=== PATIENT | male | born 1980 | race Caucasian/White ===

== ENCOUNTER 2022-07-08 15:29 | Emergency (ER) | payer OTHER, SELFPAY ==
[2022-07-08 15:29] VITALS: BP 144/88; PULSE 108; RESP 20; TEMP 36.7; O2SAT 95; BMI 36.7
--- NOTE | 2022-07-08 15:30 | W.ED.UPPEXIN ---
HPI - Extremity Injury (Upper) General: Chief Complaint: Extremity Injury, Upper Stated Complaint: right arm injury Time Seen by Provider: 07/08/22 15:30 History of Present Illness: Mr. Castro is a 41-year-old gentleman presenting to the emergency department due to concern over right arm injury. He reports tripping and falling over a root and fell landing primarily on his right upper extremity on the stump. He immediately had marked pain and noted that his arm was pointed in a direction that his shoulder was not. Current pain intensity moderate to severe. Mild distal throbbing tingling however no other CMS abnormalities. No open wounds. Patient is up-to-date on tetanus. No other specific changes in health, exacerbating, or alleviating factors identified. MD complaint: injury to: right and shoulder Onset (ago): minute(s) Handedness: right Place: home Severity: moderate Exacerbating factors: movement of extremity Context: fall Associated symptoms: Reports crepitus Review of Systems General: Reports: 10 or more systems reviewed and unremarkable except in HPI and below PFSH ED PFSH: Medical History PTSD (post-traumatic stress disorder) Surgical History No significant past surgical history Physical Exam Const: COMMON NORMALS: alert GENERAL APPEARANCE: cooperative and well developed HENMT: COMMON NORMALS: normocephalic and atraumatic HEAD & SCALP: normocephalic and atraumatic THROAT: posterior oropharynx normal OTHER: No christensen signs or raccoon eyes. No hemotympanum. No otorrhea or rhinorrhea. Jaw alignment normal. Dentition baseline. No obvious bony step-offs. No septal hematoma. No evidence of ocular entrapment. Eye: COMMON NORMALS: conjunctivae normal CONJUNCTIVA: Yes conjunctivae normal SCLERA: sclerae normal Neck/C-Spine: COMMON NORMALS: full ROM and supple GENERAL: Yes trachea midline Resp: COMMON NORMALS: clear to auscultation bilaterally EFFORT & INSPECTION: Yes able to speak in complete sentences AUSCULTATION: clear to auscultation bilaterally Cardio: COMMON NORMALS: regular rate and regular rhythm RATE: regular rate RHYTHM: regular rhythm GI: COMMON NORMALS: Soft to palpation PALPATION: Yes Soft to palpation and No Tenderness to palpation present (GI) Back/Pelvis: COMMON NORMALS: no thoracic nor lumbar tenderness Extremity: NARRATIVE EXTREMITY EXAM: Right humeral region mid to upper tenderness to palpation. Normal range of motion without tenderness of the elbow and distal structures. CMS intact. GENERAL: Yes normal exam except as noted and No edema Neuro: COMMON NORMALS: moves all extremities SENSORIUM/ORIENTATION: Yes alert and No Orientation impaired Psych: COMMON NORMALS: mental status grossly normal and Normal thought process present THOUGHT PROCESS: Normal thought process present Course Vital Signs: Vital signs: Vital Signs Temperature 98.0 F 07/08/22 15:29 Pulse Rate 84 07/08/22 18:37 Respiratory Rate 16 07/08/22 18:37 Blood Pressure 129/92 07/08/22 18:37 Pulse Oximetry 96 07/08/22 18:37 Oxygen Delivery Me thod 07/08/22 15:29 MDM - Extremity Injury (Upper) Medical Decision Making 41-year-old gentleman presenting to the emergency department for fall with concern over arm fracture. Head to toe exam performed as above. Imaging notable for mid diaphysis right humerus fracture with lateral and posterior mild displacement and soft tissue swelling. Analgesia given and patient placed in coaptation splint. Discussed with orthopedics. No indication for closed reduction. On reassessment patient improved with adequate pain control. CMS continues to be intact. Plan for outpatient orthopedic follow-up. The results of ED evaluation were discussed with the patient including prescriptions and/or symptomatic cares (if applicable) including appropriate and responsible use, followup plan, and return precautions. The patient verbalized understanding and felt safe for discharge. Medical Records I reviewed the patient's medical records. Lab Data I reviewed the patient's lab results. Radiology Impressions Humerus X-Ray 07/08/22 15:54 IMPRESSION: 1. Transverse fracture of the mid diaphysis of the right humerus. Lateral displacement of 1 shaft with and posterior displacement of 1/2 shaft width of the distal fracture fragment. 2. Mild soft tissue swelling around the mid right humerus. Discharge Plan Discharge Patient Disposition: Home Clinical Impression: Fracture, humerus closed, shaft Condition: Stable Prescriptions: New ondansetron 4 mg tablet,disintegrating 4 mg PO Q8H PRN (Reason: nausea and vomiting) Qty: 15 0RF oxycodone 5 mg tablet 5 mg PO Q4H PRN (Reason: pain) Qty: 30 0RF No Action dicyclomine 10 mg capsule 10 mg PO DAILY loratadine [Allergy Relief (loratadine)] 10 mg tablet 10 mg PO DAILY (DME) Clam Shell Brace See Rx Instructions .Route .MEDSUPPLY Qty: 1 0RF Rx Instructions: As directed meloxicam 15 mg tablet 15 mg PO QAM allopurinol 100 mg tablet 200 mg PO QAM naproxen sodium [Aleve] 220 mg Tablet 440 mg PO Q12H PRN (Reason: Pain) fluoxetine 10 mg capsule 10 mg PO QAM bupropion HCl 300 mg tablet extended release 24 hr 300 mg PO QAM Discharge Orders: Discharge ED (Routine); Ordered 07/08/22 Ordered By: Nico Samuel Referrals: Lucius Perez [Primary Care Provider] - Discharge Diet: Usual diet Discharge Activity: Limit activity as instructed Patient Instructions: Fractures - Humerus, Opioid Safety Activity Restrictions/Additional Instructions: Thank you for visiting the emergency department. You were seen and evaluated for arm pain. You were found to have a mildly displaced right humeral shaft fracture. This was placed in a splint. Wear the splint and sling until follow-up for further instructions. You may use [id number]-[id number] medications such as acetaminophen and ibuprofen for pain however please do not exceed the daily recommended dosage as listed on the packaging and please keep in mind that many namebrand medications contain the same active ingredients. Please avoid these medications if previously instructed to do so by another physician due to other underlying medical condition. I will prescribe oxycodone, use this cautiously as discussed. Return to the emergency department for uncontrolled symptoms, any new sensory or motor changes, any color changes or temperature changes, or anything else that you are concerned about and feel needs emergency department evaluation. Coding Level of Care Code ED Tobacco Cloth Reclaimer for Coy Mercer
--- NOTE | 2022-07-08 15:54 | XRR_ITS ---
PROCEDURE INFORMATION: Exam: XR Right Humerus Exam date and time: 07/08/2022 4:05 PM Age: 41 years old Clinical indication: Injury or trauma; Fall; Blunt trauma (contusions or hematomas); Arm, upper; Right; Additional info: Fall mid shaft pain TECHNIQUE: Imaging protocol: Radiologic exam of the Right humerus. Views: 2 or more views. COMPARISON: No relevant prior studies available. FINDINGS: Bones/joints: Transverse fracture of the mid diaphysis of the right humerus. Lateral displacement of 1 shaft with and posterior displacement of 1/2 shaft width of the distal fracture fragment. No dislocation. Normal bone mineralization. No joint effusion. Joint spaces are maintained. Lungs: The visualized right lung is clear. Soft tissues: Mild soft tissue swelling around the mid right humerus. No radiopaque foreign body. XR/[place] [id number] IMPRESSION: 1. Transverse fracture of the mid diaphysis of the right humerus. Lateral displacement of 1 shaft with and posterior displacement of 1/2 shaft width of the distal fracture fragment. 2. Mild soft tissue swelling around the mid right humerus.
[2022-07-08 16:03] VITALS: RESP 18
[2022-07-08] MEDS: morphine 4 mg/mL SDV 1 mL IVP (16:03)
--- NOTE | 2022-07-08 16:25 | PC.PHAR ---
pt states he takes care of his own medications-pt states he hasnt had a testosterone cyp 200mg/ml in about 3 months
[2022-07-08 17:22] VITALS: RESP 16
[2022-07-08] MEDS: HYDROmorphone 1 mg/mL INJ 1 mL 0.5 MG IVP (17:22)
[2022-07-08] MEDS: ketorolac 30 mg/mL INJ 15 MG IVP (18:34)
[2022-07-08 18:37] VITALS: BP 129/92; PULSE 84; RESP 16; O2SAT 96
--- NOTE | 2022-07-09 10:18 | DCPLANNER ---
Addendum entered by Taylor Duncan 07/12/22 08:01: Patient had a follow up appointment scheduled with Dr. Alarcon at ortho - patient did attend appointment. Original Note: central supply manager had message to schedule a follow up appointment for patient with ortho. central supply manager sent patients information to the front office staff at ortho. Patients information will be printed and reviewed. Clinic will call patient with appointment information.
== END 2022-07-08 18:39 | disposition home or self-care (01) ==
PROVIDERS: Emergency Provider Emergency Medicine; PCP Family Medicine
DX: S42.321A Displaced transverse fracture of shaft of humerus, right arm, initial encounter for closed fracture (principal); W18.09XA Striking against other object with subsequent fall, initial encounter
CPT/HCPCS: 29105; 73060; 96374; 96375; 99284; J1170; J1885; J2270

== ENCOUNTER → 2022-07-09 13:14 | Outpatient (BNVA) | payer OTHER, SELFPAY | PROVIDERS: PCP Family Medicine; Referring Provider Emergency Medicine; Visit Provider Specialist | DX: S42.321A Displaced transverse fracture of shaft of humerus, right arm, initial encounter for closed fracture (principal); W01.198A Fall on same level from slipping, tripping and stumbling with subsequent striking against other object, initial encounter | CPT/HCPCS: 73060 ==

== ENCOUNTER 2022-07-09 15:31 | Outpatient (CLI) | payer OTHER, SELFPAY | END 2022-07-09 15:32 | disposition home or self-care (01) | LOC: SPT 15:32 | PROVIDERS: PCP Family Medicine; Visit Provider Specialist | DX: Z46.89 Encounter for fitting and adjustment of other specified devices (principal); S42.291D Other displaced fracture of upper end of right humerus, subsequent encounter for fracture with routine healing; X58.XXXD Exposure to other specified factors, subsequent encounter | CPT/HCPCS: 97760; 99204; L3980 ==

== ENCOUNTER 2022-07-13 08:43 | Day surgery (SDC) | payer OTHER, SELFPAY ==
[2022-07-12 13:26] VITALS: BMI 37.7
[2022-07-13] VITALS (15 sets, daily range): BP systolic 101–149; BP diastolic 70–97; PULSE 74–102; RESP 16–20; TEMP 35.9–36.8; O2SAT 93–98
--- NOTE | 2022-07-13 09:57 | ANES.PREANE2 ---
Pre-Anesthetic Assessment Height/Weight: Height 1.93 m Weight 140.614 kg O2 Del Method 07/13/22 09:25 Preop Diagnosis: Midshaft right humerus fracture Operation Date: 07/13/22 12:10 Proposed Procedures p OPEN REDUCTION INTERNAL FIXATION RIGHT HUMERUS SHAFT FRACTURE WITH INTRAMEDULLARY SAMIR 38734,S42.309A(Right) - Nahed Alarcon MD Familial anesthetic complications: none Was Beta Brendan taken within 24 hours: N/A Was Clonidine taken within 24 hours: N/A Last intake: Intake Last Liquid Date 07/12/22 Last Liquid Time 23:30 Last Solid Date 07/12/22 Last Solid Time 20:00 Social Tobacco and No alcohol Exam alert, oriented x 3, clear to auscultation bilaterally and regular rate & rhythm Airway Mallampati: Class III Dentition: full Pulmonary Sleep Apnea Metabolic Morbid Obesity Anesthetic Plan ASA status: 2 Anesthesia: General and Regional (specify below) Risk of > 500 ml blood loss (7ml/kg in children): No Medications/Allergies Home Medications Medication Instructions Recorded Confirmed Last Taken Type allopurinol 100 mg tablet 200 mg PO QAM 07/08/22 07/13/22 07/12/22 History bupropion HCl 300 mg 24 hr tablet, 300 mg PO QAM 07/08/22 07/12/22 07/12/22 History extended release fluoxetine 10 mg capsule 10 mg PO QAM 07/08/22 07/12/22 07/12/22 History meloxicam 15 mg tablet 15 mg PO QAM 07/08/22 07/12/22 07/12/22 History naproxen sodium 220 mg tablet 440 mg PO Q12H PRN Pain 07/08/22 07/12/22 07/12/22 History (Aleve) ondansetron 4 mg disintegrating 4 mg PO Q8H PRN nausea and 07/08/22 07/12/22 07/12/22 Rx tablet vomiting #15 tabs oxycodone 5 mg tablet 5 mg PO Q4H PRN pain #30 tabs 07/08/22 07/12/22 07/13/22 06:30 Rx Clam Shell Brace #1 ea 07/09/22 07/09/22 Unknown Rx dicyclomine 10 mg capsule 10 mg PO DAILY 07/09/22 07/12/22 07/12/22 History loratadine 10 mg tablet (Allergy 10 mg PO DAILY 07/09/22 07/12/22 07/12/22 History Relief (loratadine)) Allergies Allergy/AdvReac Type Severity Reaction Status Date / Time turkey Allergy ALGY-Anaphy Verified 07/09/22 13:12 laxis Data Anesthesia Cardiac Studies: No Data to Display
[2022-07-13] MEDS: sodium chloride 0.9% 1,000 ML 30 ML IV (10:00)
[2022-07-13] MEDS: acetaminophen 1,000 MG/100 ML PIGGYBACK 400 MG IV (10:00)
--- NOTE | 2022-07-13 10:20 | ANES.PROC ---
Anesthesia Procedures Procedure/Date: 07/13/22 Nerve Block ^: Nerve Block 1: Main Anesthesia: general anesthesia Time Out Performed: Yes Consent: requested by attending/covering physician, from patient, from other, risks and benefits reviewed and patient agrees to proceed Nerve block location: interscalene (R) Anesthesia monitors applied: pulse oximetry, EKG, BP cuff and oxygen Nerve block position: semi sitting Anesthetic Used: ropivicaine 0.5% (20 ml) and with decadron (4 mg) Ultrasound used to: recognize landmarks, visualize and ID brachial plexus and visualize and ID interscalene groove Nerve Stimulator Used?: No Interscalene/Femoral BLK: 2 stimuplex 22 g needle used for position and inplane approach, visualize local anesthetic spread and no vascular puncture identified Injection: neg aspiration of heme Patient Tolerated Procedure: well and no complications Complications: none
[2022-07-13] MEDS: gabapentin 300 mg Capsule PO (10:24)
[2022-07-13] MEDS: CELEcoxib 200 mg Capsule 400 MG PO (10:25)
--- NOTE | 2022-07-13 10:39 | W.PM.OPSUD ---
Surgery/Procedure H&P Update DATE OF PROCEDURE: July 13, 2022 DATE H&P PERFORMED: 07/09/22 H&P UPDATE INFORMATION: I have reviewed H&P completed within last 30 days, I have examined patient prior to procedure, No changes to prior documentation and H&P is in [facility] EMR on date indicated PREOP DIAGNOSIS: Midshaft right humerus fracture PLANNED PROCEDURE: Operation Date: 07/13/22 12:10 Proposed Procedures p OPEN REDUCTION INTERNAL FIXATION RIGHT HUMERUS SHAFT FRACTURE WITH INTRAMEDULLARY SAMIR 03862,S42.309A(Right) - Nahed Alarcon MD Related Problem List Diagnoses (1) Fracture, humerus closed, shaft:
[2022-07-13] MEDS: ceFAZolin 2,000 MG in sodium chloride 0.9% (plus) 50 ML 100 MG IV (10:51)
--- NOTE | 2022-07-13 13:00 | SUR.OPER ---
1300 family updated of surgical status
[2022-07-13] MEDS: ceFAZolin 1,000 mg SDV 1000 MG IRRIGATION (13:38)
[2022-07-13] MEDS: vancomycin 1,000 MG SDV 1000 MG XX (13:39)
--- NOTE | 2022-07-13 14:07 | P.OP_ITS ---
Operative Report Date of procedure: July 13, 2022 Pre-op diagnosis: Right midshaft humerus fracture Post-op diagnosis: Right midshaft humerus fracture Post-op findings: Unstable midshaft right humerus fracture Procedure done: Open reduction internal fixation right midshaft fracture utilizing Ruth intramedullary nail Implants: Humerus cystoscopyStryker: Size 9 mm x 290 mm T2 humerus nail with 2 proximal locking screws fully threaded and 1 distal locking screw fully threaded Pathology: none sent Surgeon: Nahed Alarcon Pararescue Craftsman: [facility] operating room technicians Anesthesia: General (Intubated, ASA 3) Estimated blood loss (mL): 100 IV fluids (mL): 1,000 Urine output (mL): 0 (No Moreau) Complications: None Findings: Unstable slightly comminuted transverse right humerus fracture with butterfly fragment Condition: stable Disposition: PACU (Then return to same-day surgery for discharge to home) Brief History: This is an established 41 year old male patient here today for evaluation of his right humerus fracture. DOI: 07/08/2022. Patient states he tripped over a branch and fell through an oak limb. Patient presented to the E.R. where he was informed that his arm was broken after obtaining x-rays. He was splinted and sent to orthopedics for further evaluation and definitive treatment. In the office, we discussed options including clamshell style brace treatment, open reduction internal fixation with a plate, and open reduction internal fixation with a humeral nail. Given the anatomy of the fracture and the patient's habitus, it was elected to proceed with humeral nail. Risks and complications were discussed with the patient. Consents were signed and questions were answered. Procedure: The patient was brought to the operating theater and underwent general intubated anesthesia, ASA 3. The patient was placed into the beachchair positioner, and subsequently, the right upper extremity was prepped and draped in the usual fashion utilizing DuraPrep. The arm was draped free. A surgical pause was performed prior to commencement of the surgical procedure. At the time of the surgical pause, we confirmed the site and side of surgery as well as administration of appropriate preoperative antibiotics Ancef 2 g. Following the surgical pause, an incision was made at approximately the level of the lateral acromion and distally as necessary. Care was taken to avoid injury to the axillary nerve by limiting the distal extent of the deltoid splitting. Dissection continued through skin and soft tissues using a scalpel. Hemostasis was obtained using electrocautery. Soft tissues were elevated along the anterolateral border of the acromion. We were able to dissected into the subacromial space. Secondary to the patient's large muscle mass, we were not able to adductor the shoulder to get up on top of the humeral head, but we were at the level of the tubercle. Rotator cuff was entered longitudinally. Were able to identify the entry point for the anterograde humeral nail. An awl was placed followed by a guidewire. The guidewire was in good position and a tissue protector was used to protect soft tissues when we used the entry reamer. The entry reamer was used proximally. The short guidewire was then removed. A ball-tipped guidewire was then placed through the us proximal humerus to the level of the fracture. Reduction was quite difficult as the fracture was very unstable and the patient's soft tissue envelope was quite large. With difficulty, we were able to pass the guidewire through the fracture and into the distal fragment. This required manipulation and evaluation with fluoroscopic guidance. Once this wire was passed into the distal fragment, it was advanced and then measured to determine appropriate length of the nail. The appropriate length nail was noted to be a size 9 x 290. We reamed over the ball-tipped guidewire to a size 10-1/2 to allow for placement of this nail. An exchange tube was utilized so that we could place a smooth wire into the humerus. With a smooth wire, we were able to place the humeral nail over the wire and remove the wire subsequently. Once we confirmed in AP and lateral planes with fluoroscopy that we were happy with the reduction in the position of the nail, proximally, the jig was used to place 2 screws to lock the proximal aspect of the nail. Position of the screws was confirmed in AP and lateral planes. Following this, and being happy with the reduction and placement of the nail, the proximal jig was removed. Of note, there was a butterfly fragment that was not appreciated on initial imaging studies. As the nail was placed through this area, this butterfly fragment slightly displaced laterally. We were still able to get bone to bone apposition. Attention was then directed distally. Again, secondary to the patient's body habitus, it was difficult to place the distal screw and to maintain a perfect turtle mountain technique. We were, however, able to do this, and distally 1 screw was placed from anterior to posterior to control rotation. Care was taken to make a small incision and dissected down to the anterior aspect of the humerus and avoid neurovascular structures. Once this screw had been placed in position, we used fluoroscopy to evaluate the anterior and posterior aspects of the nail as well as the fracture site. Being satisfied, attention was directed to closure. The wound was irrigated and closure was accomplished with 0 Vicryl in the rotator cuff and fascial tissues of the deltoid. 2-0 Monocryl was used to close the subcutaneous tissues followed by 3-0 Monocryl subcuticular closure. This was followed by Dermabond, Steri-Strips, and OpSite. As the patient had received a preoperative interscalene block, no local anesthetic was placed. The patient was placed in a slingshot style sling and was returned to the recovery room in satisfactory condition. The patient will be discharged to home to follow-up with me in the office. There were no complications and no specimens. Related Problem List Diagnoses (1) Fracture, humerus closed, shaft:
--- NOTE | 2022-07-13 14:25 | XR_ITS ---
WS: [id number] Exam: [place] [id number] Date/Time of Exam: 07/13/2022 2:44 PM Reason For Exam: Status post ORIF Comparison 07/09/2022. Previously described midshaft fracture of the right humerus has been stabilized and reduced with an i ntramedullary sienna. The fracture is in satisfactory position for healing. Transverse screws anchor th e superior and an inferior aspect of the sienna. XR/[place] [id number] IMPRESSION: 1. Midshaft humeral fracture with internal fixation in satisfactory position fo r healing.
[2022-07-13] MEDS: ipratropium-albuterol 3 mL Neb (14:42)
--- NOTE | 2022-07-13 15:29 | PC.NURSE ---
OPS- patient back from OR/ PACU. at bedside. taking liquids and eating crackers. Oxygen removed to moniotor sats. Sats = 95% Ice on dressing to right shoulder.
[2022-07-13] MEDS: oxyCODONE 5 mg IR Tab/Cap PO (15:59)
--- NOTE | 2022-07-13 18:02 | ANE.PACU2 ---
Inpatient post-anesthesia follow up: Airway intact: Yes Vital signs: Temperature 96.6 F Pulse Rate 74 Respiratory Rate 16 Blood Pressure 134/79 Pulse Oximetry 94 Oxygen Delivery Me thod Room Air Oxygen Flow Rate 3 Fraction of Inspir ed Oxygen Hydration adequate: Yes Nausea and vomiting: No Pain level: 1 Mental status: Baseline
== END 2022-07-13 16:30 | disposition home or self-care (01) ==
PROVIDERS: PCP Family Medicine; Visit Provider Specialist
PROC: (CPT 24515; principal; 2022-07-13 11:50)
DX: S42.301A Unspecified fracture of shaft of humerus, right arm, initial encounter for closed fracture (principal); W01.0XXA Fall on same level from slipping, tripping and stumbling without subsequent striking against object, initial encounter; E66.01 Morbid (severe) obesity due to excess calories; Z68.37 Body mass index [BMI] 37.0-37.9, adult; G47.30 Sleep apnea, unspecified
CPT/HCPCS: 24516; 73060; 76000; C1713; J0131; J0690; J1100; J2250; J2405; J2704; J2710; J2795; J3010; J3370; J3490; J7030

== ENCOUNTER → 2022-07-27 10:53 | Outpatient (BNVA) | payer OTHER, SELFPAY | PROVIDERS: PCP Family Medicine; Visit Provider Nurse Practitioner Family | DX: Z98.890 Other specified postprocedural states (principal); S42.324D Nondisplaced transverse fracture of shaft of humerus, right arm, subsequent encounter for fracture with routine healing; X58.XXXD Exposure to other specified factors, subsequent encounter | CPT/HCPCS: 73060; 99024; 99213 ==

== ENCOUNTER → 2022-08-24 07:45 | Outpatient (BNVA) | payer OTHER, SELFPAY | PROVIDERS: PCP Family Medicine; Visit Provider Nurse Practitioner Family | DX: S42.301A Unspecified fracture of shaft of humerus, right arm, initial encounter for closed fracture (principal); X58.XXXA Exposure to other specified factors, initial encounter; Z98.890 Other specified postprocedural states | CPT/HCPCS: 73060; 99024; 99213 ==

== ENCOUNTER 2022-09-04 06:00 | Outpatient (RCR) | payer OTHER, SELFPAY | END 2022-09-16 23:59 | disposition home or self-care (01) | LOC: TPT 06:00 | PROVIDERS: Visit Provider Specialist | DX: Z47.89 Encounter for other orthopedic aftercare (principal); S42.391D Other fracture of shaft of right humerus, subsequent encounter for fracture with routine healing; X58.XXXD Exposure to other specified factors, subsequent encounter; Z98.890 Other specified postprocedural states | CPT/HCPCS: 97110; 97140; 97161 ==

== ENCOUNTER 2022-09-18 16:44 | Outpatient (RCR) | payer OTHER, SELFPAY | END 2022-10-17 23:59 | disposition home or self-care (01) | LOC: TPT 16:44 | PROVIDERS: Visit Provider Specialist | DX: Z47.89 Encounter for other orthopedic aftercare (principal) | CPT/HCPCS: 97110; 97140 ==

== ENCOUNTER → 2022-09-25 09:48 | Outpatient (BNVA) | payer OTHER, SELFPAY | PROVIDERS: PCP Nurse Practitioner; Visit Provider Specialist | DX: G56.02 Carpal tunnel syndrome, left upper limb (principal) | CPT/HCPCS: 95908; 95909 ==

== ENCOUNTER → 2022-09-27 08:00 | Outpatient (BNVA) | payer OTHER, SELFPAY | PROVIDERS: PCP Nurse Practitioner; Visit Provider Nurse Practitioner Family | DX: Z98.890 Other specified postprocedural states (principal); S42.301A Unspecified fracture of shaft of humerus, right arm, initial encounter for closed fracture; X58.XXXA Exposure to other specified factors, initial encounter | CPT/HCPCS: 73060; 99024; 99213 ==

== ENCOUNTER 2022-10-18 06:00 | Outpatient (RCR) | payer OTHER, SELFPAY | END 2022-10-25 23:59 | disposition home or self-care (01) | LOC: TPT 06:00 | PROVIDERS: PCP Nurse Practitioner; Visit Provider Specialist | DX: Z47.89 Encounter for other orthopedic aftercare (principal) | CPT/HCPCS: 97110; 97140 ==

== ENCOUNTER 2023-06-21 01:55 | Inpatient (IN) | payer OTHER, SELFPAY ==
[2023-06-21] VITALS (23 sets, daily range): BP systolic 92–158; BP diastolic 57–88; PULSE 80–115; RESP 12–20; TEMP 36.5–38.4; O2SAT 90–99; BMI 38.9
--- NOTE | 2023-06-21 02:20 | W.ED.ABDPA2 ---
HPI - Abdominal Pain General: Chief Complaint: Abdominal Pain Stated Complaint: lower abd pain Time Seen by Provider: 06/21/23 01:57 History of Present Illness: Patient presents to the ER with abdominal pain. This started hurting a couple days ago but progressively got worse throughout the night. Patient does have a history of IBS and takes Bentyl routinely for this. But it did not help at all this time. Patient has been nauseous and vomiting. Patient's not been able to eat or drink a whole lot secondary to the pain. Patient is never had any abdominal surgery. Due to the patient's IBS he usually has 4-5 bowel movements a day, he is only had 1 small bowel movement within the last 24 hours. Patient states the pain started in the middle of his abdomen or at the l left upper quadrant and states it is kind of progressed to encompassing the the whole lower half of his abdomen. Review of Systems General: Reports: 10 or more systems reviewed and unremarkable except in HPI and below PFSH ED PFSH: Medical History PTSD (post-traumatic stress disorder) Surgical History No significant past surgical history Physical Exam Const: COMMON NORMALS: no acute distress, average body habitus, patient oriented x3, no limitations, healthy appearing, alert and well nourished HENMT: COMMON NORMALS: normocephalic, atraumatic, hearing grossly normal bilaterally, external ears normal, Normal external nose present, moist oral mucous membranes and oropharynx normal HEAD & SCALP: normocephalic and atraumatic NOSE: Normal external nose present EXTERNAL EAR: Yes external ears normal Neck/C-Spine: COMMON NORMALS: no JVD Chest: COMMONS NORMALS: normal inspection of the chest and normal palpation of entire chest wall Resp: COMMON NORMALS: normal respiratory effort, No retractions, No use of accessory muscles and clear to auscultation bilaterally AUSCULTATION: clear to auscultation bilaterally Cardio: COMMON NORMALS: no JVD, regular rate, regular rhythm, S1 normal heart sound present, S2 normal heart sound present, No gallops present (Cardio), No clicks present (Cardio), No murmurs present (Cardio) and No rub (Cardio) RATE: regular rate RHYTHM: regular rhythm HEART SOUNDS: S1 normal heart sound present and S2 normal heart sound present GI: COMMON NORMALS: Soft to palpation, No hepatosplenomegaly present, no masses and no bruits; negative for Normal to inspection, nondistended, normoactive bowel sounds present (Mildly distended with normoactive bowel sounds in all 4 quadrants) and negative for non-tender (Diffusely tender but worse on the left side) PALPATION: Yes Soft to palpation and Yes No hepatosplenomegaly present Neuro: COMMON NORMALS: patient oriented x3 SENSORIUM/ORIENTATION: Yes alert Course Vital Signs: Vital signs: Vital Signs Temperature 98 F 06/21/23 01:59 Pulse Rate 106 H 06/21/23 01:59 Respiratory Rate 20 H 06/21/23 01:59 Blood Pressure 158/82 06/21/23 01:59 Pulse Oximetry 97 06/21/23 01:59 MDM - Abdominal Pain Medical Decision Making Patient presents with abdominal pain nausea vomiting. Lab work was obtained which revealed a white count of 26,000, BUN/creatinine of 11 and 1.1, abdomen/pelvis CT scan with contrast showed acute appendicitis with possible perforation given punctate locules of gas outside the appendix wall. Patient was given 3.375 g of Zosyn, made n.p.o., Dr. Deng was consulted who agreed to admit the patient and take him to surgery in the morning. Differential Diagnosis Likely abdominal pain; Unlikely acute appendicitis, calculus of kidney, constipation, diverticulitis, endometriosis, gastroenteritis, pancreatitis or small bowel obstruction Medical Records I reviewed the patient's medical records. Lab Data I reviewed the patient's lab results. 06/21/23 02:06 06/21/23 02:06 Labs/Radiology: Radiology Impressions Abdomen/Pelvis CT 06/21/23 02:25 IMPRESSION: 1. Findings compatible with acute appendicitis with possible perforation given punctate locules of gas appreciated outside the wall of the appendix. 2. Diffuse hepatic steatosis with focal fatty sparing at the gallbladder fossa. 3. Bibasilar mild emphysematous change. COMMENTS: Consistent with the [employer]'s Incidental Findings Committee white paper (J Am Urmila Radiol 2018): Any incidental renal lesion less than 1 cm or classified as too small to characterize, or any incidental cystic renal lesion characterized as simple-appearing, is likely benign. No follow-up imaging is recommended for these lesions per consensus recommendations based on imaging criteria. Laboratory Results WBC 26.99 10^3/uL (3.29-11.43) H 06/21/23 02:06 RBC 5.16 10^6/uL (3.85-5.65) 06/21/23 02:06 Hgb 15.90 g/dL (11.27-16.99) 06/21/23 02:06 Hct 45.0 % (37-53) 06/21/23 02:06 MCV 87.2 fl (82-101) 06/21/23 02:06 MCH 30.8 pg (27-33) 06/21/23 02:06 MCHC 35.3 g/dL (30-55) 06/21/23 02:06 RDW 12.4 % (12.1-15.1) 06/21/23 02:06 Plt Count 286 10^3/cmm (157-399) 06/21/23 02:06 MPV 9.7 fL (7.4-10.4) 06/21/23 02:06 Neut % (Auto) 79.3 % 06/21/23 02:06 Lymph % (Auto) 10.2 % 06/21/23 02:06 [place] % (Auto) 8.9 % 06/21/23 02:06 Eos % (Auto) 0.4 % 06/21/23 02:06 Baso % (Auto) 0.3 % 06/21/23 02:06 Neut # (Auto) 21.42 10^3/uL (1.8-7.7) H 06/21/23 02:06 Lymph # (Auto) 2.8 10^3/uL (0.8-4.8) 06/21/23 02:06 [place] # (Auto) 2.4 10^3/uL (0.2-0.9) H 06/21/23 02:06 Eos # (Auto) 0.1 10^3/uL (0.0-0.8) 06/21/23 02:06 Baso # (Auto) 0.1 10^3/uL (0.0-0.1) 06/21/23 02:06 Nucleated RBC % (auto) 0 % 06/21/23 02:06 Nucleated RBCs # 0.0 /100WBC 06/21/23 02:06 Sodium 132 mmol/L (136-145) L 06/21/23 02:06 Potassium 4.3 mmol/L (3.5-5.1) 06/21/23 02:06 Chloride 97 mmol/L (98-107) L 06/21/23 02:06 Carbon Dioxide 23 mmol/L (22-29) 06/21/23 02:06 Anion Gap 16.3 (5-19) 06/21/23 02:06 BUN 11 mg/dL (6-20) 06/21/23 02:06 Creatinine 1.1 mg/dL (0.7-1.2) 06/21/23 02:06 GFR Calculation 72.7 mL/min (90-130) L 06/21/23 02:06 Glucose 231 mg/dL (65-115) H 06/21/23 02:06 Calculated Osmolality 281 mOsm/kg (285-295) L 06/21/23 02:06 Calcium 9.3 mg/dL (8.5-10.5) 06/21/23 02:06 Magnesium 1.7 mg/dL (1.7-2.3) 06/21/23 02:06 Total Bilirubin 1.1 mg/dL (0.15-1.2) 06/21/23 02:06 AST 16 U/L (0-40) 06/21/23 02:06 ALT 21 U/L (0-41) 06/21/23 02:06 Alkaline Phosphatase 124 U/L (40-130) 06/21/23 02:06 C-Reactive Protein 102.2 mg/L (0.0-4.9) H 06/21/23 02:06 Total Protein 8.1 g/dL (6.6-8.7) 06/21/23 02:06 Albumin 4.2 g/dL (3.5-5.2) 06/21/23 02:06 Globulin 3.9 g/dL (1.3-4.6) 06/21/23 02:06 Lipase 23 U/L (13-60) 06/21/23 02:06 All radiology interpretation(s) finalized by discharge Discharge Plan Discharge Patient Disposition: Admitted As Inpatient Clinical Impression: Acute appendicitis Condition: Stable Prescriptions: No Action hydrocodone-acetaminophen 5-325 mg tablet 1 tab PO Q4H PRN (Reason: pain) 5 Days Qty: 30 0RF dicyclomine 10 mg capsule 10 mg PO DAILY loratadine [Allergy Relief (loratadine)] 10 mg tablet 10 mg PO DAILY (DME) Clam Shell Brace See Rx Instructions .Route .MEDSUPPLY Qty: 1 0RF Rx Instructions: As directed meloxicam 15 mg tablet 15 mg PO QAM allopurinol 100 mg tablet 200 mg PO QAM naproxen sodium [Aleve] 220 mg Tablet 440 mg PO Q12H PRN (Reason: Pain) fluoxetine 10 mg capsule 10 mg PO QAM bupropion HCl 300 mg tablet extended release 24 hr 300 mg PO QAM ondansetron 4 mg tablet,disintegrating 4 mg PO Q8H PRN (Reason: nausea and vomiting) Qty: 15 0RF Referrals: Vane Diaz FNP [Primary Care Provider] - Coding Level of Care Code ED Graduate Teaching Associate for Coy Mercer
[2023-06-21 02:23] LABS: Basophils # 0.1 10^3/uL (0.0-0.1); Basophils % 0.3 %; Eosinophils # 0.1 10^3/uL (0.0-0.8); Eosinophils % 0.4 %; Lymphocytes # 2.8 10^3/uL (0.8-4.8); Lymphocytes % 10.2 %; Mean Corpuscular HGB Conc 35.3 g/dL (30-55); Mean Corpuscular Hemoglobin 30.8 pg (27-33); Mean Corpuscular Volume 87.2 fl (82-101); Mean Platelet Volume 9.7 fL (7.4-10.4); Monocytes # 2.4 10^3/uL (0.2-0.9); Monocytes % 8.9 %; Neutrophils # 21.42 10^3/uL (1.8-7.7); Neutrophils % 79.3 %; Nucleated Red Blood Cells % 0 %; Platelet Count 286 10^3/cmm (157-399); Red Blood Count 5.16 10^6/uL (3.85-5.65); Red Cell Distribution Width 12.4 % (12.1-15.1); White Blood Count 26.99 10^3/uL (3.29-11.43)
--- NOTE | 2023-06-21 02:25 | CTR_ITS ---
PROCEDURE INFORMATION: Exam: CT Abdomen And Pelvis With Contrast Exam date and time: 06/21/2023 2:42 AM Age: 42 years old Clinical indication: Abdominal pain; Periumbilical; Additional info: Abd pain, n/v, ibs, leukocytosis TECHNIQUE: Imaging protocol: Computed tomography of the abdomen and pelvis with contrast. Radiation optimization: All CT scans at this facility use at least one of these dose optimization techniques: automated exposure control; mA and/or kV adjustment per patient size (includes targeted exams where dose is matched to clinical indication); or iterative reconstruction. Contrast material: OMNI 350; Contrast volume: 100 ml; Contrast route: INTRAVENOUS (IV); COMPARISON: ES surgery / GI images 07/31/2016 1:04 PM RADIATION DOSE METRICS: Total DLP (mGy-cm): 1292.3 FINDINGS: Lungs: Bibasilar emphysematous changes, mild. Heart: Base of heart is unremarkable as visualized. Liver: Diffuse hypoattenuation of the liver with sparing of parenchyma at the gallbladder fossa. Gallbladder and bile ducts: Normal. No calcified stones. No ductal dilation. Pancreas: Mild fatty atrophy of the pancreas. Spleen: Normal. No splenomegaly. Adrenal glands: Normal. No mass. Kidneys and ureters: Benign-appearing, fluid attenuating, 1.3 x 1.3 cm right upper pole renal cyst . Punctate left upper pole hypoattenuation too small to characterize, however statistically likely to represent benign renal cyst. Stomach and bowel: Unremarkable. No obstruction. No mucosal thickening. Appendix: The appendix is dilated and fluid-filledr reaching a maximal diameter ofrr 1 cm. Appendix demonstrates circumferential hyperenhancement as well as surrounding inflammatory fat stranding. At the appendiceal orifice there is a calcifiedr appendicolith which measures approximately 6 mm. There are 2 foci of gas appreciated just beyond the wall of the appendix best appreciated on coronal series 5, image 34 and 33. Intraperitoneal space: Unremarkable. No free air. No significant fluid collection. Vasculature: Minimal scattered arterial atherosclerotic disease. Lymph nodes: Prominent right lower quadrant intraperitoneal lymph nodes. Urinary bladder: Unremarkable as visualized. Reproductive: Unremarkable as visualized. Bones/joints: Mild scattered degenerative osseous changes. Soft tissues: Unremarkable. CT/CT abdomen pelvis w con* [id number] IMPRESSION: 1. Findings compatible with acute appendicitis with possible perforation given punctate locules of gas appreciated outside the wall of the appendix. 2. Diffuse hepatic steatosis with focal fatty sparing at the gallbladder fossa. 3. Bibasilar mild emphysematous change. COMMENTS: Consistent with the [place] [employer] [employer]'s Incidental Findings Committee white paper (J Am Urmila Radiol 2018): Any incidental renal lesion less than 1 cm or classified as too small to characterize, or any incidental cystic renal lesion characterized as simple-appearing, is likely benign. No follow-up imaging is recommended for these lesions per consensus recommendations based on imaging criteria.
[2023-06-21] MEDS: ketorolac 30 mg/mL INJ IVP (02:31)
[2023-06-21] MEDS: sodium chloride 0.9% 1,000 ML 999 ML IV (02:31)
[2023-06-21 02:35] LABS: Alanine Aminotransferase 21 U/L (0-41); Albumin Level 4.2 g/dL (3.5-5.2); Alkaline Phosphatase 124 U/L (40-130); Aspartate Amino Transferase 16 U/L (0-40); Blood Urea Nitrogen 11 mg/dL (6-20); C Reactive Protein 102.2 mg/L (0.0-4.9); Calcium 9.3 mg/dL (8.5-10.5); Carbon Dioxide 23 mmol/L (22-29); Chloride 97 mmol/L (98-107); Globulin 3.9 g/dL (1.3-4.6); Glomerular Filtration Rate 72.7 mL/min (90-130); Glucose 231 mg/dL (65-115); Lipase 23 U/L (13-60); Magnesium 1.7 mg/dL (1.7-2.3); Osmolality Calculated 281 mOsm/kg (285-295); Sodium 132 mmol/L (136-145); Total Bilirubin 1.1 mg/dL (0.15-1.2); Total Protein 8.1 g/dL (6.6-8.7)
[2023-06-21 02:37] LABS: Anion Gap 16.3 (5-19); Potassium 4.3 mmol/L (3.5-5.1)
[2023-06-21] MEDS: iohexol 350 mg/mL 500 mL Btl (per mL) IV (02:47)
[2023-06-21] MEDS: piperacillin-tazobactam 3.375 GM in sodium chloride 0.9% (plus) 50 ML IV ×3 (04:03→17:21)
[2023-06-21 04:45] LABS: Add Urine Culture? No; Add Urine Microscopic? YES; Bacteria Urine TRACE /hpf; Bilirubin Urine Neg (Negative); Blood Urine Neg (Negative); Glucose Urine UA 1+ (Normal); Ketones Urine Negative (Negative); Leukocyte Esterase Urine Negative (Negative); Nitrate Urine Negative (Negative); Protein Urine Trace (Negative); Specific Gravity, Urine 1.015 (1.005-1.030); Urine Appearance Clear (CLEAR); Urine Color Yellow (Yellow); Urobilinogen Urine Neg (Negative); pH Urine 5 (5-7)
--- NOTE | 2023-06-21 05:06 | P.HP_ITS ---
Providers/Chief Complaint 2 Admitting Physician: Tan Mcgee Primary Care Provider: ROMERO De La Cruz Chief Complaint: lower abd pain History of Present Illness Jose R Castro is a 42 year old male who presented to the emergency department with significant abdominal pain, was found to have leukocytosis up to 26,[address] scan of the abdomen pelvis show evidence of rupture appendicitis. I was consulted for this finding. Patient states that the pain started about 2 to 3 days ago and has progressively getting worse. Review of Systems 2 General: Reports: 10 or more systems reviewed and unremarkable except in HPI and below Medications/Allergies Home Medications Medication Instructions Recorded Confirmed Last Taken Type allopurinol 100 mg tablet 200 mg PO QAM 07/08/22 09/27/22 07/12/22 History bupropion HCl 300 mg 24 hr tablet, 300 mg PO QAM 07/08/22 09/27/22 07/12/22 History extended release fluoxetine 10 mg capsule 10 mg PO QAM 07/08/22 09/27/22 07/12/22 History meloxicam 15 mg tablet 15 mg PO QAM 07/08/22 09/27/22 07/12/22 History naproxen sodium 220 mg tablet 440 mg PO Q12H PRN Pain 07/08/22 09/27/22 07/12/22 History (Aleve) ondansetron 4 mg disintegrating 4 mg PO Q8H PRN nausea and 07/08/22 09/27/22 07/12/22 Rx tablet vomiting #15 tabs Clam Shell Brace #1 ea 07/09/22 09/27/22 Unknown Rx dicyclomine 10 mg capsule 10 mg PO DAILY 07/09/22 09/27/22 07/12/22 History loratadine 10 mg tablet (Allergy 10 mg PO DAILY 07/09/22 09/27/22 07/12/22 History Relief (loratadine)) hydrocodone 5 mg-acetaminophen 325 1 tab PO Q4H PRN pain 5 days #30 07/27/22 09/27/22 Unknown Rx mg tablet tabs Allergies Allergy/AdvReac Type Severity Reaction Status Date / Time turkey Allergy ALGY-Anaphy Verified 09/27/22 08:11 laxis PFSH Acute 2 PFSH: Medical History PTSD (post-traumatic stress disorder) Surgical History No significant past surgical history Vitals/I&O/Wt Last Vital Signs Temp 98 F 06/21/23 01:59 Pulse 108 H 06/21/23 03:54 Resp 16 06/21/23 03:54 BP 122/80 06/21/23 03:54 Pulse Ox 96 06/21/23 03:54 Weight last 48 hrs Weight 320 lb Physical Exam 2 Narrative: General : Patient is well developed , no acute distress, oriented x3 Head : Normal cephalic, a-traumatic. Nose : Mucous membranes are without erythema. Lungs : Equal chest rise bilaterally, no use of accessory muscles, trachea is midline. CV : Rate and rhythm are normal. Abdomen : Abdomen is tender to palpation with localized peritonitis in the right lower quadrant Extremities : No edema. Upper extremities are normal bilaterally. Back : non-tender to palpation, no CVA tenderness. Data 06/21/23 02:06 06/21/23 02:06 A&P Assessment and plan (1) Acute appendicitis: Qualifiers: Acute appendicitis type: with localized peritonitis Appendicitis abscess presence: without abscess Appendicitis gangrene presence: without gangrene Appendicitis perforation presence: with perforation Qualified Code(s): K35.32 - Acute appendicitis with perforation, localized peritonitis, and gangrene, without abscess Plan After complete history physical examination and review of all available clinical data the following is my assessment. Patient has acute appendicitis with perforation, patient will require laparoscopic appendectomy I have discussed all the risk and benefits of the procedures including the risk of conversion to open procedure, need for additional interventions, intra-abdominal abscess formation, persistent infection leukocytosis, damage to surrounding structures requiring additional surgery, bleeding, sepsis and . Patient acknowledged the risk and wished to proceed. Attestations 2 Medical Necessity Statement*: Patient will stay in the hospital for 48 to 72 hours for IV antibiotics for perforated acute appendicitis Coding Level of Care Code Acute Code for [facility] Diagnoses Acute appendicitis K35.32 Acute appendicitis type: with localized peritonitis Appendicitis abscess presence: without abscess Appendicitis gangrene presence: without gangrene Appendicitis perforation presence: with perforation
--- NOTE | 2023-06-21 05:22 | P.ANESASSM_ITS ---
Pre-Anesthetic Assessment Height/Weight: Height 1.93 m Weight 145.15 kg Temp Pulse Resp BP Pulse Ox O2 Del Method 101.1 F H 106 H 18 120/70 98 Room Air 06/21/23 05:11 06/21/23 05:11 06/21/23 05:11 06/21/23 05:11 06/21/23 05:11 06/21/23 05:11 Operation Date: 06/21/23 05:30 Proposed Procedures p Laparoscopic Appendectomy(Not Applicable) - Tan Mcgee MD Familial anesthetic complications: None Was Beta Brendan taken within 24 hours: N/A Was Clonidine taken within 24 hours: N/A Last intake: > 8 hrs Social No alcohol and No tobacco Exam alert, oriented x 3, clear to auscultation bilaterally and regular rate & rhythm Airway Mallampati: Class IV Dentition: full Pulmonary Sleep Apnea Metabolic Morbid Obesity Anesthetic Plan ASA status: 2 Anesthesia: General Risk of > 500 ml blood loss (7ml/kg in children): No Medications/Allergies Home Medications Medication Instructions Recorded Confirmed Last Taken Type allopurinol 100 mg tablet 200 mg PO QAM 07/08/22 09/27/22 07/12/22 History bupropion HCl 300 mg 24 hr tablet, 300 mg PO QAM 07/08/22 09/27/22 07/12/22 History extended release fluoxetine 10 mg capsule 10 mg PO QAM 07/08/22 09/27/22 07/12/22 History meloxicam 15 mg tablet 15 mg PO QAM 07/08/22 09/27/22 07/12/22 History naproxen sodium 220 mg tablet 440 mg PO Q12H PRN Pain 07/08/22 09/27/22 07/12/22 History (Aleve) ondansetron 4 mg disintegrating 4 mg PO Q8H PRN nausea and 07/08/22 09/27/22 07/12/22 Rx tablet vomiting #15 tabs Clam Shell Brace #1 ea 07/09/22 09/27/22 Unknown Rx dicyclomine 10 mg capsule 10 mg PO DAILY 07/09/22 09/27/22 07/12/22 History loratadine 10 mg tablet (Allergy 10 mg PO DAILY 07/09/22 09/27/22 07/12/22 History Relief (loratadine)) hydrocodone 5 mg-acetaminophen 325 1 tab PO Q4H PRN pain 5 days #30 07/27/22 09/27/22 Unknown Rx mg tablet tabs Allergies Allergy/AdvReac Type Severity Reaction Status Date / Time turkey Allergy ALGY-Anaphy Verified 09/27/22 08:11 laxis [facility] Anesthesia Medical History PTSD (post-traumatic stress disorder) Surgical History No significant past surgical history Data Anesthesia 06/21/23 02:06 06/21/23 02:06 Short CBC 06/21/23 Range/Units 02:06 WBC 26.99 H (3.29-11.43) 10^3/uL Hgb 15.90 (11.27-16.99) g/dL Hct 45.0 (37-53) % MCV 87.2 (82-101) fl Plt Count 286 (157-399) 10^3/cmm Neut % (Auto) 79.3 % Neut # (Auto) 21.42 H (1.8-7.7) 10^3/uL BMP 06/21/23 02:06 Sodium 132 L Potassium 4.3 Chloride 97 L Carbon Dioxide 23 BUN 11 Creatinine 1.1 Glucose 231 H Calcium 9.3 Liver Function 06/21/23 Range/Units 02:06 Total Bilirubin 1.1 (0.15-1.2) mg/dL AST 16 (0-40) U/L ALT 21 (0-41) U/L Alkaline Phosphatase 124 (40-130) U/L Albumin 4.2 (3.5-5.2) g/dL Urine 06/21/23 Range/Units 04:29 Urine Color Yellow (Yellow) Urine Appearance Clear (CLEAR) Urine pH 5 (5-7) Ur Specific [place] 1.015 (1.005-1.030) Urine Protein Trace (Negative) Urine Glucose (UA) 1+ H (Normal) Urine Ketones Negative (Negative) Urine Nitrate Negative (Negative) Urine Bilirubin Neg (Negative) Ur Leukocyte Esterase Negative (Negative) Urine RBC None (0-2) /hpf Urine WBC None (0-5) /hpf Coags 06/21/23 02:06 C-Reactive Protein 102.2 H Cardiac Studies: 2 No Data to Display
[2023-06-21] MEDS: sodium chloride 0.9% 1,000 ML 30 ML IV (05:32)
[2023-06-21] MEDS: BUPivacaine 0.25% INJ 10 mL INJECTION (06:22)
[2023-06-21] MEDS: lidocaine-epi 1% 20 mL INJ INJECTION (06:22)
--- NOTE | 2023-06-21 07:14 | PM.OP ---
Operative Report Date of procedure: June 21, 2023 Pre-op diagnosis: Perforated acute appendicitis Post-op diagnosis: Perforated acute appendicitis with periappendiceal abscess Post-op findings: There was a perforated appendix in the distal one third with a periappendiceal abscess and early phlegmon formation with the terminal ileum. Procedure done: Laparoscopic appendectomy Specimens removed/disposition: Appendix Surgeon: Tan Mcgee MD Deburring Machine Operator: KIM OR STaff Estimated blood loss: 10 Complications: None apparent Brief History: 42-year-old male with perforated acute appendicitis, laparoscopic colectomy was indicated. After discussion of all risk and benefits as documented in my preop note with side to proceed. Procedure: Patient was brought into the operative room, she was placed in the supine position, general esthesia was given. The abdomen was prepped and draped in the usual sterile fashion. Timeout was conducted. The abdomen was accessed via a 5 mm Optiview port on the left upper quadrant. Pneumoperitoneum was obtained and initial laparoscopy confirmed no evidence of visceral injury. A 2 mm trocar was placed in the supraumbilical position and additional 5 mm trocars were placed on the suprapubic and left lower quadrant position under real visualization. Small phlegmon was noted on the right lower quadrant after mobilization of the terminal ileum with blunt dissection periappendiceal abscess was revealed, the abscess was evacuated with suction irrigation. Appendix appeared to be completely broken on the distal third with intense inflammatory reaction and plastering into the retroperitoneum. With careful blunt dissection and LigaSure I was able to mobilize the tip of the appendix, is at this point that it was confirmed that the appendix was completely rupture the distal tear was individual piece not connected to the rest of the appendix. The specimen was placed on Ray-Arsen to be taken out of the abdomen with a complete the specimen, I then proceeded to traction the Bendix from the area of transection and these allow me to visualize the mesoappendix, with careful dissection with LigaSure and staying close to the appendix I proceeded to advance in a cranial direction until the base of the appendix and the cecum was visualized circumferential dissection was done as there was significant inflammatory reaction surrounding the appendix with thickening of the peritoneum. Once the appendix was completely free of all inflammatory tissue I was able to visualize the base with appeared healthy. I then proceeded to transect the appendix using a 45 mm blue load Endo TAMMIE stapler, after transection the staple line appeared to be healthy with no evidence of bleeding. The specimen in addition to the distal third of the appendix was placed in an Endo Catch bag and retrieved through the umbilical port site. I then proceeded to remove the Ray-Arsen that was placed into the abdomen. Subsequently I irrigated the area of the staple line and appendiceal bed, the pelvis was also irrigated and suction. Due to significant fecal contamination of the and due to perforation I decided to place a channel drain into the pelvis and right paracolic gutter, this was delivered through the suprapubic trocar site and fixed to the skin with #2-0 nylon. Under direct visualization I proceeded to close the umbilical trocar site with a Gentry-Erica suture passer and 0 Vicryl. The left lower quadrant trocar was then removed under direct visualization and the left upper quadrant trocar was used to acquire pneumoperitoneum and subsequently removed. At the end of the procedure all counts were correct. I proceeded to irrigate all wounds with saline and then the wounds were closed in layers using #4 Monocryl for the skin and Dermabond on top. Patient tolerated well the procedure was extubated and transferred to the PACU in stable condition. Patient will remain in the hospital for 48 to 72 hours for IV antibiotics.
--- NOTE | 2023-06-21 08:14 | PC.PHAR ---
[facility] 8:10AM 06/21/23
--- NOTE | 2023-06-21 09:02 | PC.PHAR ---
PT HAS 4 MEDICATIONS NO LONGER [facility] THEY ARE FOLLOWS: DICYCLOMINE 10MG, NORCO 5-325MG, NAPROXEN 220 MG, ZOFRAN 4 MG.
[2023-06-21] MEDS: ketorolac 30 mg/mL INJ 15 MG IVP ×3 (10:00→21:18)
[2023-06-22] VITALS (7 sets, daily range): BP systolic 111–148; BP diastolic 53–80; PULSE 70–92; RESP 16–20; TEMP 36.2–36.7; O2SAT 97–99; BMI 38.9
[2023-06-22] MEDS: piperacillin-tazobactam 3.375 GM in sodium chloride 0.9% (plus) 50 ML IV ×3 (01:53→18:25)
[2023-06-22] MEDS: ketorolac 30 mg/mL INJ 15 MG IVP ×4 (03:52→23:28)
[2023-06-22 05:15] LABS: Basophils % 0.1 %; Hematocrit 37.8 % (37-53); Lymphocytes # 2.2 10^3/uL (0.8-4.8); Lymphocytes % 7.9 %; Mean Corpuscular HGB Conc 33.6 g/dL (30-55); Mean Corpuscular Hemoglobin 30.4 pg (27-33); Mean Corpuscular Volume 90.4 fl (82-101); Mean Platelet Volume 10.3 fL (7.4-10.4); Monocytes # 1.9 10^3/uL (0.2-0.9); Neutrophils % 84.3 %; Nucleated Red Blood Cells % 0 %; Platelet Count 207 10^3/cmm (157-399); Red Blood Count 4.18 10^6/uL (3.85-5.65); Red Cell Distribution Width 12.4 % (12.1-15.1); White Blood Count 27.32 10^3/uL (3.29-11.43)
[2023-06-22 05:37] LABS: Anion Gap 12.3 (5-19); Blood Urea Nitrogen 16 mg/dL (6-20); Carbon Dioxide 25 mmol/L (22-29); Chloride 103 mmol/L (98-107); Glomerular Filtration Rate 72.7 mL/min (90-130); Glucose 215 mg/dL (65-115); Osmolality Calculated 290 mOsm/kg (285-295); Potassium 4.3 mmol/L (3.5-5.1); Sodium 136 mmol/L (136-145)
[2023-06-22 06:27] LABS: Glucose Point of Care 220 mg/dL (70-110)
--- NOTE | 2023-06-22 08:57 | P.PN_ITS ---
Subjective 2 Subjective: Patient is postoperative day 1 status post laparoscopic appendectomy for perforated acute appendicitis with abscess. Patient is doing well overnight, he has been tolerating diet, has been ambulating, incisional pain but no significant abdominal pain. Vitals/I&O/Wt Last Vital Signs Temp 97.2 F L 06/22/23 07:48 Pulse 92 06/22/23 07:48 Resp 20 H 06/22/23 07:48 BP 148/80 06/22/23 07:48 Pulse Ox 98 06/22/23 07:48 O2 Del Method Room Air 06/22/23 07:48 O2 Flow Rate 6 06/21/23 07:46 FiO2 1.5 06/21/23 13:40 06/21/23 06/22/23 06/22/23 22:59 06:59 14:59 Intake Total 170 / 790 100 / 890 480 / 480 Output Total 30 / 85 Balance 140 / 705 100 / 805 480 / 480 Weight last 48 hrs Weight 320 lb Weight 320 lb Weight 320 lb Physical Exam 2 Narrative: General : Patient is well developed , no acute distress, oriented x3 Head : Normal cephalic, a-traumatic. Nose : Mucous membranes are without erythema. Lungs : Equal chest rise bilaterally, no use of accessory muscles, trachea is midline. CV : Rate and rhythm are normal. Abdomen : Soft, appropriately tender to palpation, surgical incisions are covered with Dermabond, SUZANNE drain with serosanguineous output. Extremities : No edema. Upper extremities are normal bilaterally. Back : non-tender to palpation, no CVA tenderness. Data 06/22/23 04:03 06/22/23 04:03 A&P Assessment and plan (1) Acute appendicitis: Qualifiers: Acute appendicitis type: with localized peritonitis Appendicitis abscess presence: without abscess Appendicitis gangrene presence: without gangrene Appendicitis perforation presence: with perforation Qualified Code(s): K35.32 - Acute appendicitis with perforation, localized peritonitis, and gangrene, without abscess Plan After complete history, physical examination and review of all available clinical data the following is my assessment. Patient has good progression after laparoscopic appendectomy for perforated appendicitis with abscess. Is important to know that white count is still elevated, which is expected due to severity of the inflammatory reaction in the abdomen noted during surgery. He has remained afebrile and vital signs have remained stable and physical exam is very reassuring. Will continue for liquid diet for today and the white count is trending down by tomorrow we will advance to regular diet. Plan is for 48 hours more of IV antibiotics and possible discharge is anticipated for Saturday. Attestations 2 Medical Necessity Statement*: Patient will receive 48 to 72 hours of IV antibiotics before discharge. Coding Level of Care Code Acute Code for [facility] Diagnoses Acute appendicitis K35.32 Acute appendicitis type: with localized peritonitis Appendicitis abscess presence: without abscess Appendicitis gangrene presence: without gangrene Appendicitis perforation presence: with perforation
[2023-06-22 11:42] LABS: Glucose Point of Care 242 mg/dL (70-110)
[2023-06-22 16:42] LABS: Glucose Point of Care 238 mg/dL (70-110)
[2023-06-22] MEDS: insulin lispro 100 unit/1 mL SUBCUT ×2 (18:26→21:41)
[2023-06-22 22:08] LABS: Glucose Point of Care 195 mg/dL (70-110)
[2023-06-23] MEDS: piperacillin-tazobactam 3.375 GM in sodium chloride 0.9% (plus) 50 ML IV ×3 (01:25→17:54)
[2023-06-23 04:30] VITALS: BP 115/76; PULSE 70; RESP 16; TEMP 36.4; O2SAT 97
[2023-06-23] MEDS: buPROPion XL (24 HR) 300 mg Tablet PO (05:29)
[2023-06-23] MEDS: fluoxetine 10 mg Capsule PO (05:30)
[2023-06-23] MEDS: ketorolac 30 mg/mL INJ 15 MG IVP ×4 (05:30→23:21)
[2023-06-23 06:06] LABS: Basophils # 0.1 10^3/uL (0.0-0.1); Basophils % 0.3 %; Eosinophils # 0.2 10^3/uL (0.0-0.8); Eosinophils % 1.3 %; Hematocrit 36.8 % (37-53); Lymphocytes # 3.8 10^3/uL (0.8-4.8); Lymphocytes % 25.4 %; Mean Corpuscular HGB Conc 33.4 g/dL (30-55); Mean Corpuscular Hemoglobin 30.6 pg (27-33); Mean Corpuscular Volume 91.5 fl (82-101); Mean Platelet Volume 10.2 fL (7.4-10.4); Monocytes # 1.3 10^3/uL (0.2-0.9); Monocytes % 8.9 %; Neutrophils % 63.4 %; Nucleated Red Blood Cells % 0 %; Platelet Count 236 10^3/cmm (157-399); Red Blood Count 4.02 10^6/uL (3.85-5.65); Red Cell Distribution Width 12.6 % (12.1-15.1); White Blood Count 14.82 10^3/uL (3.29-11.43)
[2023-06-23 06:23] LABS: Anion Gap 10.1 (5-19); Blood Urea Nitrogen 18 mg/dL (6-20); Calcium 8.1 mg/dL (8.5-10.5); Carbon Dioxide 28 mmol/L (22-29); Chloride 105 mmol/L (98-107); Glomerular Filtration Rate 72.7 mL/min (90-130); Glucose 138 mg/dL (65-115); Osmolality Calculated 292 mOsm/kg (285-295); Potassium 4.1 mmol/L (3.5-5.1); Sodium 139 mmol/L (136-145)
[2023-06-23 06:57] LABS: Glucose Point of Care 147 mg/dL (70-110)
[2023-06-23 08:00] VITALS: BP 117/76; PULSE 73; RESP 19; TEMP 36.3; O2SAT 98
--- NOTE | 2023-06-23 10:25 | PM.PN ---
Subjective Subjective: Patient is postoperative day 2 status post laparoscopic appendectomy for perforated acute appendicitis. Patient doing very well after surgery, tolerating diet, having bowel movements and passing gas. No significant complaints overnight. Vitals/I&O/Wt Last Vital Signs Temp 97.4 F L 06/23/23 08:00 Pulse 73 06/23/23 08:00 Resp 19 H 06/23/23 08:00 BP 117/76 06/23/23 08:00 Pulse Ox 98 06/23/23 08:00 O2 Del Method Room Air 06/23/23 08:00 O2 Flow Rate 6 06/21/23 07:46 FiO2 1.5 06/21/23 13:40 06/22/23 06/23/23 06/23/23 22:59 06:59 14:59 Intake Total 240 / 1010 460 / 1470 480 / 480 Output Total Balance 225 / 995 450 / 1445 480 / 480 Weight last 48 hrs Weight 320 lb 1 oz Weight 320 lb Physical Exam GI: OTHER: Abdomen is soft, nontender, nondistended, SUZANNE drain with serosanguineous output, abdominal exam at this moment is benign. Surgical incisions are covered with Dermabond Data 06/23/23 04:57 06/23/23 04:57 A&P Assessment and plan (1) Acute appendicitis: Qualifiers: Acute appendicitis type: with localized peritonitis Appendicitis abscess presence: without abscess Appendicitis gangrene presence: without gangrene Appendicitis perforation presence: with perforation Qualified Code(s): K35.32 - Acute appendicitis with perforation, localized peritonitis, and gangrene, without abscess Plan After complete history physical examination and review of all available clinical data the following is my assessment. Patient has a very good progression after laparoscopic appendectomy for perforated acute appendicitis. White count has improved significantly from 27-14. Patient will stay in the hospital for additional 48 hours for IV antibiotics due to intra-abdominal abscess noted during laparoscopic appendectomy. I have encouraged the patient to ambulate, plan for the day was discussed with nursing staff. Attestations Medical Necessity Statement*: Patient will require 48 hours of hospital stay for IV antibiotics for perforated acute appendicitis with intra-abdominal abscess. Coding Level of Care Code Acute Code for [facility] Diagnoses Acute appendicitis K35.32 Acute appendicitis type: with localized peritonitis Appendicitis abscess presence: without abscess Appendicitis gangrene presence: without gangrene Appendicitis perforation presence: with perforation
[2023-06-23 11:36] VITALS: BP 133/81; PULSE 78; RESP 20; TEMP 36.5; O2SAT 97
[2023-06-23 11:39] LABS: Glucose Point of Care 195 mg/dL (70-110)
[2023-06-23] MEDS: insulin lispro 100 unit/1 mL SUBCUT ×2 (13:02→22:37)
[2023-06-23 13:38] LABS: Estmated Average Glucose 174; Hemoglobin A1C 7.7 % (4.0-6.0)
[2023-06-23 15:33] VITALS: PULSE 78; RESP 20; O2SAT 97
[2023-06-23 16:43] LABS: Glucose Point of Care 139 mg/dL (70-110)
[2023-06-23 17:28] VITALS: BP 139/73; PULSE 84; RESP 19; TEMP 36.4; O2SAT 98
[2023-06-23 19:32] VITALS: BP 108/68; PULSE 81; RESP 16; TEMP 36.7; O2SAT 98
[2023-06-23 22:07] LABS: Glucose Point of Care 253 mg/dL (70-110)
[2023-06-24] VITALS (9 sets, daily range): BP systolic 111–144; BP diastolic 72–85; PULSE 75–83; RESP 16–20; TEMP 36.2–36.7; O2SAT 95–99
[2023-06-24] MEDS: piperacillin-tazobactam 3.375 GM in sodium chloride 0.9% (plus) 50 ML IV ×3 (03:02→17:12)
[2023-06-24 04:51] LABS: Basophils # 0.1 10^3/uL (0.0-0.1); Basophils % 0.5 %; Eosinophils # 0.3 10^3/uL (0.0-0.8); Eosinophils % 2.1 %; Hematocrit 38.8 % (37-53); Lymphocytes % 23.5 %; Mean Corpuscular HGB Conc 33.2 g/dL (30-55); Mean Corpuscular Hemoglobin 30.4 pg (27-33); Mean Corpuscular Volume 91.5 fl (82-101); Mean Platelet Volume 9.8 fL (7.4-10.4); Monocytes # 1.1 10^3/uL (0.2-0.9); Neutrophils # 8.09 10^3/uL (1.8-7.7); Neutrophils % 64.1 %; Nucleated Red Blood Cells % 0 %; Platelet Count 245 10^3/cmm (157-399); Red Blood Count 4.24 10^6/uL (3.85-5.65); Red Cell Distribution Width 12.4 % (12.1-15.1); White Blood Count 12.61 10^3/uL (3.29-11.43)
[2023-06-24 05:09] LABS: Anion Gap 11.9 (5-19); Blood Urea Nitrogen 18 mg/dL (6-20); Calcium 8.4 mg/dL (8.5-10.5); Carbon Dioxide 27 mmol/L (22-29); Chloride 105 mmol/L (98-107); Glomerular Filtration Rate 65.8 mL/min (90-130); Glucose 130 mg/dL (65-115); Osmolality Calculated 294 mOsm/kg (285-295); Potassium 3.9 mmol/L (3.5-5.1); Sodium 140 mmol/L (136-145)
[2023-06-24] MEDS: buPROPion XL (24 HR) 300 mg Tablet PO (06:26)
[2023-06-24] MEDS: fluoxetine 10 mg Capsule PO (06:26)
[2023-06-24] MEDS: ketorolac 30 mg/mL INJ 15 MG IVP ×4 (06:27→23:09)
[2023-06-24 06:48] LABS: Glucose Point of Care 140 mg/dL (70-110)
--- NOTE | 2023-06-24 09:22 | PC.CHAP ---
Pastoral Care Encounter/Spiritual Assessment Type of Contact [] Declined web solutions architect visit [] Patient/Family/Request visit [] Outpatient visit [] Follow-up visit [] Physician referral [] Code/Alert [x] Routine visit [] Staff referral [] Actively dying [] Patient sleeping [] Family support [] [] Out of room [] Palliative care [] [] Receiving care in room [] Pre-surgical visit [] Trauma [] Long length of stay [] ICU visit [] Other: Relational/Emotional Strength [x] Patient feels connected with others/family/visitors/staff [] Distress [] Loneliness/isolation [] Abandonment Spirituality of Patient [x] Person of [place] [] Attends Orthodox of their [place] [x] Believes in Prayer [] Reads Bible or Latter Day materials [] There are Spiritual issues to be addressed Brood Hatchery Manager Interventions [x] Prayer [] Active listening [] Non-anxious presence [x] Spiritual/emotional support [] Crisis/trauma care [] Spiritual counseling [] Bereavement support [] Provided bereavement packet [] Provided Bible/devotional materials [] Provided toy/stuffed animal, coloring book to patient or family member [] Provided Communion [] Anointing/[place] [] Salvation [x] Completed spiritual assessment [] Other: Impact on Illness or Injury [] Angry [] Fearful [] Anxious [] Often cries [] Exhaustion [] Unable to work [] Unable to attend temple [] Unable to walk/stand [] Unable to read [] Unable to drive [] Unable to eat/drink [] Unable to sleep [] Unable to be with family [] Patient intubated [] Other: Summary Time spent with patient 5 min
--- NOTE | 2023-06-24 10:05 | P.PN_ITS ---
Subjective 2 Subjective: Patient doing well, no significant abdominal pain, ambulating, passing gas and having bowel movements. Vitals/I&O/Wt Last Vital Signs Temp 97.5 F L 06/24/23 08:16 Pulse 78 06/24/23 08:16 Resp 20 H 06/24/23 08:16 BP 131/72 06/24/23 08:16 Pulse Ox 95 06/24/23 08:16 O2 Del Method Room Air 06/24/23 08:16 O2 Flow Rate 6 06/21/23 07:46 FiO2 1.5 06/21/23 13:40 06/23/23 06/24/23 06/24/23 22:59 06:59 14:59 Intake Total 580 / 1420 120 / 1540 530 / 530 Balance 580 / 1420 120 / 1540 530 / 530 Weight last 48 hrs Weight 320 lb 6 oz Weight 320 lb 1 oz Physical Exam 2 Narrative: General : Patient is well developed , no acute distress, oriented x3 Head : Normal cephalic, a-traumatic. Nose : Mucous membranes are without erythema. Lungs : Equal chest rise bilaterally, no use of accessory muscles, trachea is midline. CV : Rate and rhythm are normal. Abdomen : Soft, appropriately tender to palpation, surgical incisions healing well, SUZANNE drain with serous output. Extremities : No edema. Upper extremities are normal bilaterally. Back : non-tender to palpation, no CVA tenderness. Data 06/24/23 04:01 06/24/23 04:01 Micro: Microbiology 06/21/23 04:20 Blood Culture - Preliminary Blood 06/21/23 04:16 Blood Culture - Preliminary Blood A&P Assessment and plan (1) Acute appendicitis: Qualifiers: Acute appendicitis type: with localized peritonitis Appendicitis abscess presence: without abscess Appendicitis gangrene presence: without gangrene Appendicitis perforation presence: with perforation Qualified Code(s): K35.32 - Acute appendicitis with perforation, localized peritonitis, and gangrene, without abscess Plan Patient is having a good progression after laparoscopic colectomy for perforated acute appendicitis, white count continues to downtrend is 12.6 today down from 14. I have explained to the patient that we admitted his white count to be normal before he leaves the hospital due to the amount of inflammation and fecal contamination noted during the case. Plan is to probably discharge tomorrow if white count is okay, I will remove the SUZANNE drain before discharge. Patient shows understanding we will continue walking around and currently feels well. Attestations 2 Medical Necessity Statement*: Patient will require 24 to 48 hours of hospital care for IV antibiotics due to perforated acute appendicitis. Coding Level of Care Code Acute Code for [facility] Diagnoses Acute appendicitis K35.32 Acute appendicitis type: with localized peritonitis Appendicitis abscess presence: without abscess Appendicitis gangrene presence: without gangrene Appendicitis perforation presence: with perforation
[2023-06-24 11:37] LABS: Glucose Point of Care 230 mg/dL (70-110)
[2023-06-24] MEDS: insulin lispro 100 unit/1 mL SUBCUT ×3 (11:47→21:50)
[2023-06-24] MEDS: oxyCODONE 5 mg IR Tab/Cap PO ×2 (13:59→21:50)
[2023-06-24 17:09] LABS: Glucose Point of Care 244 mg/dL (70-110)
[2023-06-24 20:52] LABS: Glucose Point of Care 185 mg/dL (70-110)
[2023-06-25] VITALS (9 sets, daily range): BP systolic 112–140; BP diastolic 70–89; PULSE 69–80; RESP 14–20; TEMP 36.4–37; O2SAT 97–99
[2023-06-25] MEDS: piperacillin-tazobactam 3.375 GM in sodium chloride 0.9% (plus) 50 ML IV ×3 (02:17→17:26)
[2023-06-25 05:30] LABS: Basophils # 0.1 10^3/uL (0.0-0.1); Basophils % 0.5 %; Eosinophils # 0.5 10^3/uL (0.0-0.8); Lymphocytes # 2.9 10^3/uL (0.8-4.8); Lymphocytes % 24.7 %; Mean Corpuscular HGB Conc 34.1 g/dL (30-55); Mean Corpuscular Hemoglobin 30.9 pg (27-33); Mean Corpuscular Volume 90.5 fl (82-101); Mean Platelet Volume 9.2 fL (7.4-10.4); Monocytes # 1.1 10^3/uL (0.2-0.9); Monocytes % 9.2 %; Neutrophils # 7.16 10^3/uL (1.8-7.7); Neutrophils % 60.3 %; Nucleated Red Blood Cells % 0 %; Platelet Count 243 10^3/cmm (157-399); Red Blood Count 4.31 10^6/uL (3.85-5.65); Red Cell Distribution Width 12.1 % (12.1-15.1); White Blood Count 11.88 10^3/uL (3.29-11.43)
[2023-06-25] MEDS: oxyCODONE 5 mg IR Tab/Cap PO ×2 (06:37→20:17)
[2023-06-25] MEDS: ketorolac 30 mg/mL INJ 15 MG IVP ×3 (06:37→17:26)
[2023-06-25] MEDS: buPROPion XL (24 HR) 300 mg Tablet PO (06:38)
[2023-06-25] MEDS: fluoxetine 10 mg Capsule PO (06:38)
[2023-06-25 06:43] LABS: Glucose Point of Care 132 mg/dL (70-110)
--- NOTE | 2023-06-25 08:25 | P.PN_ITS ---
Subjective 2 Subjective: Postoperative day 4 status post laparoscopic appendectomy for perforated acute appendicitis. Patient is doing well, tolerating diet having bowel movements ambulating passing gas, SUZANNE drain is putting serosanguineous output. Vitals/I&O/Wt Last Vital Signs Temp 97.5 F L 06/25/23 07:45 Pulse 80 06/25/23 07:45 Resp 17 06/25/23 07:45 BP 126/75 06/25/23 07:45 Pulse Ox 97 06/25/23 07:45 O2 Del Method Room Air 06/25/23 07:45 O2 Flow Rate 6 06/21/23 07:46 FiO2 1.5 06/21/23 13:40 06/24/23 06/25/23 06/25/23 22:59 06:59 14:59 Intake Total 1460 / 2520 500 / 3020 60 / 60 Output Total 20 Balance 1445 / 2505 495 / 3000 60 / 60 Weight last 48 hrs Weight 319 lb 5 oz Weight 320 lb 6 oz Physical Exam 2 Narrative: General : Patient is well developed , no acute distress, oriented x3 Head : Normal cephalic, a-traumatic. Nose : Mucous membranes are without erythema. Lungs : Equal chest rise bilaterally, no use of accessory muscles, trachea is midline. CV : Rate and rhythm are normal. Abdomen : Soft appropriately tender to palpation, SUZANNE drain in place with serosanguineous output Extremities : No edema. Upper extremities are normal bilaterally. Back : non-tender to palpation, no CVA tenderness. Data 06/25/23 05:21 06/24/23 04:01 A&P Assessment and plan (1) Acute appendicitis: Qualifiers: Acute appendicitis type: with localized peritonitis Appendicitis abscess presence: without abscess Appendicitis gangrene presence: without gangrene Appendicitis perforation presence: with perforation Qualified Code(s): K35.32 - Acute appendicitis with perforation, localized peritonitis, and gangrene, without abscess Plan Patient is progressing well after laparoscopic fundectomy for perforated acute appendicitis. White count continues to trend down but has not yet to normalize. I have discussed with the patient we will keep him in-house for 24 hours more of IV antibiotics and will plan for discharge tomorrow morning. I will remove SUZANNE drain before discharge. In addition I have discussed with the patient that he has been diagnosed with diabetes as evidenced with a hemoglobin A1c of more than 7. Patient will follow-up with primary care physician after discharge to initiate additional therapy Attestations 2 Medical Necessity Statement*: For discharge tomorrow, patient will require 24 hours more of IV antibiotics Coding Level of Care Code Acute Code for [facility] Diagnoses Acute appendicitis K35.32 Acute appendicitis type: with localized peritonitis Appendicitis abscess presence: without abscess Appendicitis gangrene presence: without gangrene Appendicitis perforation presence: with perforation
[2023-06-25 11:53] LABS: Glucose Point of Care 193 mg/dL (70-110)
[2023-06-25] MEDS: insulin lispro 100 unit/1 mL SUBCUT ×3 (12:04→21:32)
[2023-06-25 16:42] LABS: Glucose Point of Care 200 mg/dL (70-110)
[2023-06-25 21:07] LABS: Glucose Point of Care 182 mg/dL (70-110)
[2023-06-26] MEDS: ketorolac 30 mg/mL INJ 15 MG IVP (00:14)
[2023-06-26 00:43] VITALS: BP 124/71; PULSE 67; RESP 18; TEMP 37.2; O2SAT 98
[2023-06-26] MEDS: piperacillin-tazobactam 3.375 GM in sodium chloride 0.9% (plus) 50 ML IV (02:10)
[2023-06-26 05:00] VITALS: BP 124/79; PULSE 72; RESP 18; TEMP 37; O2SAT 97
[2023-06-26 05:37] LABS: Basophils # 0.1 10^3/uL (0.0-0.1); Basophils % 0.6 %; Eosinophils # 0.5 10^3/uL (0.0-0.8); Eosinophils % 3.8 %; Hematocrit 39.3 % (37-53); Lymphocytes # 3.4 10^3/uL (0.8-4.8); Lymphocytes % 24.8 %; Mean Corpuscular HGB Conc 33.8 g/dL (30-55); Mean Corpuscular Hemoglobin 30.4 pg (27-33); Mean Corpuscular Volume 89.7 fl (82-101); Mean Platelet Volume 9.3 fL (7.4-10.4); Monocytes % 7.6 %; Neutrophils # 8.37 10^3/uL (1.8-7.7); Neutrophils % 61.5 %; Nucleated Red Blood Cells % 0 %; Platelet Count 251 10^3/cmm (157-399); Red Blood Count 4.38 10^6/uL (3.85-5.65); White Blood Count 13.61 10^3/uL (3.29-11.43)
--- NOTE | 2023-06-26 06:13 | CT_ITS ---
WS: [id number] CT ABDOMEN PELVIS TECHNIQUE: Contrast-enhanced CT of the abdomen and pelvis with coronal and sagittal reformatted image s. CLINICAL INFORMATION: intra abdominal abscess COMPARISON: CT 06/21/2023 DLP: 1318.[address] scans at [facility] use at least one of these dose optimization techniques: automated e xposure control; mA and/or kV adjustment per patient size (includes targeted exams where dose is matc hed to clinical indication); or iterative reconstruction. FINDINGS: Status post recent appendectomy. No evidence of abdominal abscess or fluid collection. Surg ical drain in the pelvis. Diffuse fatty infiltration of the liver. Lung bases are well aerated. Subsegmental atelectasis RIGHT lower lobe. Normal GE junction. Normal portal vein and splenic vein. Normal spleen. Normal caliber ab dominal aorta. Adrenal glands are normal. Normal renal parenchymal enhancement. No hydronephrosis. Sm all RIGHT renal cyst. Sigmoid diverticulosis. Trace fluid in the pelvis. IMPRESSION: 1. Surgical drain in place in the pelvis. 2. Status post recent appendectomy. No evidence of abdominal abscess or drainable fluid collection.
[2023-06-26] MEDS: buPROPion XL (24 HR) 300 mg Tablet PO (06:21)
[2023-06-26] MEDS: fluoxetine 10 mg Capsule PO (06:21)
[2023-06-26 06:22] VITALS: RESP 18
[2023-06-26] MEDS: oxyCODONE 5 mg IR Tab/Cap PO (06:22)
[2023-06-26 06:38] LABS: Glucose Point of Care 124 mg/dL (70-110)
--- NOTE | 2023-06-26 07:38 | P.PN_ITS ---
Subjective 2 Subjective: Patient doing well overnight, no significant abdominal pain, tolerating diet and having bowel movements, no nausea or vomiting. Vitals/I&O/Wt Last Vital Signs Temp 98.6 F 06/26/23 05:00 Pulse 72 06/26/23 05:00 Resp 18 06/26/23 06:22 BP 124/79 06/26/23 05:00 Pulse Ox 97 06/26/23 05:00 O2 Del Method Room Air 06/25/23 16:00 O2 Flow Rate 6 06/21/23 07:46 FiO2 1.5 06/21/23 13:40 06/25/23 06/26/23 06/26/23 22:59 06:59 14:59 Intake Total 1000 / 1230 980 / 2210 Output Total / 3 Balance 995 / 1225 980 / 2205 -3 / -3 Weight last 48 hrs Weight 317 lb Weight 319 lb 5 oz Physical Exam 2 GI: OTHER: Abdominal exam is benign, abdomen is soft, appropriately tender to palpation, surgical incisions are healing well SUZANNE drain with serous output. Data 06/26/23 05:17 06/24/23 04:01 A&P Assessment and plan (1) Acute appendicitis: Qualifiers: Acute appendicitis type: with localized peritonitis Appendicitis abscess presence: without abscess Appendicitis gangrene presence: without gangrene Appendicitis perforation presence: with perforation Qualified Code(s): K35.32 - Acute appendicitis with perforation, localized peritonitis, and gangrene, without abscess Plan Patient is having an excellent progress after laparoscopic colectomy for perforated appendicitis. Only concern is uptrending of the white count this morning, due to this finding I will proceed with CT scan of the abdomen pelvis with p.o. and IV contrast, to evaluate for possible intra-abdominal abscess. If there is an intra-abdominal abscess that can be drained by IR we will proceed on this route if there is no evidence of abscess or a small abscess will discharge patient on p.o. antibiotics for a week. Patient agrees with the plan. Attestations 2 Medical Necessity Statement*: Possible discharge today. Coding Level of Care Code Acute Code for [facility] Diagnoses Acute appendicitis K35.32 Acute appendicitis type: with localized peritonitis Appendicitis abscess presence: without abscess Appendicitis gangrene presence: without gangrene Appendicitis perforation presence: with perforation
[2023-06-26 08:00] VITALS: BP 131/87; PULSE 79; RESP 16; TEMP 36.7; O2SAT 98
[2023-06-26] MEDS: iohexol 350 mg/mL 500 mL Btl (per mL) IV (08:00)
[2023-06-26] MEDS: iohexol 350 mg/mL 500 mL Btl (per mL) PO (08:02)
[2023-06-26 08:59] VITALS: PULSE 74; RESP 16; O2SAT 96
--- NOTE | 2023-06-26 09:08 | PM.DCS ---
Discharge Providers Date of Admission: 06/21/23 05:28 Date of Discharge: June 26, 2023 Attending Provider at Admission: Tan Mcgee MD Attending Provider at Discharge: Tan Mcgee MD Primary Care Provider: ROMERO De La Cruz Diagnoses at Discharge Discharge Diagnosis (1) Acute appendicitis: Status: Acute Qualifiers: Acute appendicitis type: with localized peritonitis Appendicitis abscess presence: without abscess Appendicitis gangrene presence: without gangrene Appendicitis perforation presence: with perforation Qualified Code(s): K35.32 - Acute appendicitis with perforation, localized peritonitis, and gangrene, without abscess Reason for Visit Reason for Visit: lower abd pain Hospital Course Hospital Course 42-year-old male who presented to the hospital with perforated acute appendicitis. He was taken to the OR, laparoscopic appendectomy was done without complications, patient remained in the hospital for 5 days for IV antibiotics due to the amount of fecal contamination in the abdomen noted during surgery. On postoperative day 5 patient was noted to have a slight uptrend of the white count and therefore a new CAT scan was obtained. CT scan show evidence of no intra-abdominal pathology, patient doing well tolerating diet having bowel movements and ambulating, his SUZANNE drain was removed and he will be discharged to follow-up as outpatient in 2 weeks. Of note during this hospital admission obtain an A1c which was elevated confirming a diagnosis of diabetes, patient has been instructed to follow-up with primary care physician soon as possible to initiate the treatment. Physical Exam GI: OTHER: Abdomen soft, nontender, nondistended, surgical incisions are healing well. Discharge Data Studies Completed and Pending Completed Studies During Hospitalization Category Date Time Status CT abdomen pelvis w con* [id number] Stat Cat Scan 06/21/23 02:[address] abdomen pelvis w con* [id number] Stat Cat Scan 06/26/23 06:13 Completed Pathology: Surgical [PTH] Routine Pth 06/21/23 07:33 Completed Pending at discharge Category Date Time Status Blood Cultures ([facility]) Routine Lab 06/21/23 04:16 Results Blood Cultures ([facility]) Routine Lab 06/21/23 04:20 Results Laboratory Results WBC 13.61 10^3/uL (3.29-11.43) H 06/26/23 05:17 RBC 4.38 10^6/uL (3.85-5.65) 06/26/23 05:17 Hgb 13.30 g/dL (11.27-16.99) 06/26/23 05:17 Hct 39.3 % (37-53) 06/26/23 05:17 MCV 89.7 fl (82-101) 06/26/23 05:17 MCH 30.4 pg (27-33) 06/26/23 05:17 MCHC 33.8 g/dL (30-55) 06/26/23 05:17 RDW 12.0 % (12.1-15.1) L 06/26/23 05:17 Plt Count 251 10^3/cmm (157-399) 06/26/23 05:17 MPV 9.3 fL (7.4-10.4) 06/26/23 05:17 Neut % (Auto) 61.5 % 06/26/23 05:17 Lymph % (Auto) 24.8 % 06/26/23 05:17 [place] % (Auto) 7.6 % 06/26/23 05:17 Eos % (Auto) 3.8 % 06/26/23 05:17 Baso % (Auto) 0.6 % 06/26/23 05:17 Neut # (Auto) 8.37 10^3/uL (1.8-7.7) H 06/26/23 05:17 Lymph # (Auto) 3.4 10^3/uL (0.8-4.8) 06/26/23 05:17 [place] # (Auto) 1.0 10^3/uL (0.2-0.9) H 06/26/23 05:17 Eos # (Auto) 0.5 10^3/uL (0.0-0.8) 06/26/23 05:17 Baso # (Auto) 0.1 10^3/uL (0.0-0.1) 06/26/23 05:17 Nucleated RBC % (auto) 0 % 06/26/23 05:17 Nucleated RBCs # 0.0 /100WBC 06/26/23 05:17 Sodium 140 mmol/L (136-145) 06/24/23 04:01 Potassium 3.9 mmol/L (3.5-5.1) 06/24/23 04:01 Chloride 105 mmol/L (98-107) 06/24/23 04:01 Carbon Dioxide 27 mmol/L (22-29) 06/24/23 04:01 Anion Gap 11.9 (5-19) 06/24/23 04:01 BUN 18 mg/dL (6-20) 06/24/23 04:01 Creatinine 1.2 mg/dL (0.7-1.2) 06/24/23 04:01 GFR Calculation 65.8 mL/min (90-130) L 06/24/23 04:01 Glucose 130 mg/dL (65-115) H 06/24/23 04:01 POC Glucose 124 mg/dL (70-110) H 06/26/23 06:33 Estimat Average Glucose 174 06/23/23 04:57 Hemoglobin A1c 7.7 % (4.0-6.0) H 06/23/23 04:57 Calculated Osmolality 294 mOsm/kg (285-295) 06/24/23 04:01 Calcium 8.4 mg/dL (8.5-10.5) L 06/24/23 04:01 Magnesium 1.7 mg/dL (1.7-2.3) 06/21/23 02:06 Total Bilirubin 1.1 mg/dL (0.15-1.2) 06/21/23 02:06 AST 16 U/L (0-40) 06/21/23 02:06 ALT 21 U/L (0-41) 06/21/23 02:06 Alkaline Phosphatase 124 U/L (40-130) 06/21/23 02:06 C-Reactive Protein 102.2 mg/L (0.0-4.9) H 06/21/23 02:06 Total Protein 8.1 g/dL (6.6-8.7) 06/21/23 02:06 Albumin 4.2 g/dL (3.5-5.2) 06/21/23 02:06 Globulin 3.9 g/dL (1.3-4.6) 06/21/23 02:06 Lipase 23 U/L (13-60) 06/21/23 02:06 Urine Color Yellow (Yellow) 06/21/23 04:29 Urine Appearance Clear (CLEAR) 06/21/23 04:29 Urine pH 5 (5-7) 06/21/23 04:29 Ur Specific [place] 1.015 (1.005-1.030) 06/21/23 04:29 Urine Protein Trace (Negative) 06/21/23 04:29 Urine Glucose (UA) 1+ (Normal) H 06/21/23 04:29 Urine Ketones Negative (Negative) 06/21/23 04:29 Urine Blood Neg (Negative) 06/21/23 04:29 Urine Nitrate Negative (Negative) 06/21/23 04:29 Urine Bilirubin Neg (Negative) 06/21/23 04:29 Urine Urobilinogen Neg mg/dL (Negative) 06/21/23 04:29 Ur Leukocyte Esterase Negative (Negative) 06/21/23 04:29 Urine RBC None /hpf (0-2) 06/21/23 04:29 Urine WBC None /hpf (0-5) 06/21/23 04:29 Ur Squamous Epith Cells None /hpf (0-5) 06/21/23 04:29 Amorphous Sediment Not Reportable 06/21/23 04:29 Urine Bacteria Trace /hpf (NONE) 06/21/23 04:29 Vitals Last Vital Signs Temp 98.0 F 06/26/23 08:00 Pulse 74 06/26/23 08:59 Resp 16 06/26/23 08:59 BP 131/87 06/26/23 08:00 Pulse Ox 96 06/26/23 08:59 O2 Del Method Room Air 06/26/23 08:59 O2 Flow Rate 6 06/21/23 07:46 FiO2 1.5 06/21/23 13:40 Discharge Plan Discharge Patient Disposition: Home Condition: Stable Prescriptions: New amoxicillin-pot clavulanate 875-125 mg tablet 1 tab PO BID Qty: 10 0RF metformin 750 mg tablet extended release 24 hr 750 mg PO DAILY Qty: 60 0RF meloxicam 15 mg tablet 15 mg PO DAILY Qty: 7 0RF Continued loratadine [Allergy Relief (loratadine)] 10 mg tablet 10 mg PO DAILY fluoxetine 10 mg capsule 10 mg PO QAM bupropion HCl 300 mg tablet extended release 24 hr 300 mg PO QAM Multi-Vitamin Tablet 1 tab PO DAILY Glucosamine 500 mg Tablet 500 mg PO DAILY Rx Instructions: administer with a meal ascorbic acid (vitamin C) 500 mg Tablet 500 mg PO DAILY testosterone cypionate 200 mg/mL oil 200 mg IM .ONCE MONTHLY ProAir HFA 90 mcg/actuation Hfa Aerosol Inhaler 2 puff INHALATION QID Held allopurinol 100 mg tablet 200 mg PO QAM Hold Instructions: Resume on 07/10/23. Discontinued meloxicam 15 mg tablet 15 mg PO QAM metformin 500 mg Tablet Extended Release 24 Hr 500 mg PO BID No Action (DME) Beto Luna Brarosalva See Rx Instructions .Route .MEDSUPPLY Qty: 1 0RF Rx Instructions: As directed Discharge Orders: Discharge Order (Routine); Ordered 06/26/23 Ordered By: Tan Mcgee Referrals: Vane Diaz FNP [Primary Care Provider] - Tan Mcgee MD [Physician] - (2 weeks) Discharge Diet: Advance as tolerated Discharge Activity: Limit activity as instructed Patient Instructions: Opioid Safety Activity Restrictions/Additional Instructions: Walk is much as possible to improve your recovery, do not lift anything heavier than 15 pounds for the next 6 weeks. Return to the hospital you have fever chills severe abdominal pain. You can shower let soap and water over your wounds and pat dry. Discharge Attestations Time Spent in Discharge Care*: less than 30 min Quality Metrics Clinical Quality Measures [ No reported AMI, CVA or VTE this stay] Coding Level of Care Code [facility] Diagnoses Acute appendicitis K35.32 Acute appendicitis type: with localized peritonitis Appendicitis abscess presence: without abscess Appendicitis gangrene presence: without gangrene Appendicitis perforation presence: with perforation
--- NOTE | 2023-06-26 10:56 | PC.NURSE ---
Discharge instructions provided to pt and . NO questions or concerns at this time. Dr. Mcgee pulled pt.s vito drain this am.
[2023-06-26 10:57] VITALS: PULSE 74; RESP 16; O2SAT 96
== END 2023-06-26 11:02 | disposition home or self-care (01) | DRG 399 ==
LOC: ER 03:46 → OR 04:42 → MEDSURG 05:29
PROVIDERS: Admitting Provider Surgery; Emergency Provider Emergency Medicine; PCP Nurse Practitioner; Visit Provider Surgery
PROC: 0DTJ4ZZ Resection of Appendix, Percutaneous Endoscopic Approach (ICD-10-PCS; CPT 44970; principal; 2023-06-21 05:30)
DX: K35.33 Acute appendicitis with perforation, localized peritonitis, and gangrene, with abscess (principal); D72.829 Elevated white blood cell count, unspecified; F43.10 Post-traumatic stress disorder, unspecified; E11.9 Type 2 diabetes mellitus without complications
CPT/HCPCS: 36415; 36416; 74177; 80048; 80053; 81001; 82962; 83036; 83690; 83735; 85025; 86140; 87040; 88304; 96365; 96372; 96375; 99285; J0131; J0330; J1100; J1170; J1815; J1885; J2250; J2405; J2543; J2704; J3010; J3490; J3535; J7030; Q9967

== ENCOUNTER → 2023-07-09 08:23 | Outpatient (BNVA) | payer OTHER, SELFPAY | PROVIDERS: PCP Nurse Practitioner; Visit Provider Surgery | DX: E11.65 Type 2 diabetes mellitus with hyperglycemia (principal); Z98.890 Other specified postprocedural states | CPT/HCPCS: 99024 ==

== ENCOUNTER 2023-08-23 11:38 | Outpatient (CLI) | payer OTHER, SELFPAY ==
--- NOTE | 2023-08-23 11:43 | CT_ITS ---
WS: [id number] Examination: CT abdomen pelvis w con* [id number] Reason for Exam: HX OF RUPTURE APPENDIX/ELEVATED WBC Date: August 23, 2023 Comparison: None. DLP: 1118.[address] scans at [facility] use at least one of these dose optimization techniques: automated e xposure control; mA and/or kV adjustment per patient size (includes targeted exams where dose is matc hed to clinical indication); or iterative reconstruction. Findings: The heart is normal in size. There is no pleural effusion. The liver is prominent in size. There is hepatic steatosis. The gallbladder is present but contracted . The portal vein is patent. The spleen is unremarkable. There is no adrenal mass. The kidneys are well-perfused. The right is smaller than the left. There is no stone or hydronephrosis. Again a peripheral cyst on the right kidney is noted. The pancreas is unremarkable. The aorta is normal in size. There is no small bowel obstruction. An appendectomy has been performed. There has been clearing of t he suspected postoperative changes noted on the previous study. There is no free fluid or free air. I n the interval the surgical drain has been removed. Small mesenteric nodes are present. Impression: The liver is prominent in size with hepatic steatosis Status post appendectomy with clearing of the postsurgical change.
[2023-08-23] MEDS: iohexol 300 mg/mL 100 mL Btl PO (12:51)
[2023-08-23] MEDS: iohexol 350 mg/mL 500 mL Btl (per mL) IV (12:52)
== END 2023-08-23 11:39 | disposition home or self-care (01) ==
LOC: RAD 11:38
PROVIDERS: PCP Nurse Practitioner; Visit Provider Nurse Practitioner
DX: D72.829 Elevated white blood cell count, unspecified (principal); K76.0 Fatty (change of) liver, not elsewhere classified; Z98.890 Other specified postprocedural states
CPT/HCPCS: 74177; Q9967

== ENCOUNTER → 2023-10-04 08:10 | Outpatient (BNVA) | payer OTHER, SELFPAY | PROVIDERS: PCP Nurse Practitioner; Referring Provider Nurse Practitioner; Visit Provider Internal Medicine | DX: E11.9 Type 2 diabetes mellitus without complications (principal); E78.2 Mixed hyperlipidemia; Z79.84 Long term (current) use of oral hypoglycemic drugs; Z79.85 Long-term (current) use of injectable non-insulin antidiabetic drugs | CPT/HCPCS: 99204 ==

== ENCOUNTER 2024-02-24 08:42 | Outpatient (CLI) | payer OTHER, SELFPAY ==
[2024-02-24 09:38] LABS: Alanine Aminotransferase 25 U/L (0-41); Alkaline Phosphatase 121 U/L (40-130); Aspartate Amino Transferase 21 U/L (0-40); Blood Urea Nitrogen 12 mg/dL (6-20); Calcium 9.2 mg/dL (8.5-10.5); Carbon Dioxide 29 mmol/L (22-29); Chloride 99 mmol/L (98-107); Chol HDL Ratio 4.88 mg/dL (1.0-5.00); Cholesterol 156 mg/dL (0-200); Globulin 3.2 g/dL (1.3-4.6); Glomerular Filtration Rate 80.8 mL/min (90-130); Glucose 305 mg/dL (65-115); HDL Cholesterol 32 mg/dL (60-100); Osmolality Calculated 291 mOsm/kg (285-295); Sodium 135 mmol/L (136-145); Total Bilirubin 0.5 mg/dL (0.15-1.2); Total Protein 7.2 g/dL (6.6-8.7); Triglycerides 440 mg/dL (0-150)
[2024-02-24 09:43] LABS: Anion Gap 11.9 (5-19); Potassium 4.9 mmol/L (3.5-5.1)
[2024-02-24 09:46] LABS: Creatinine Urine, Random 93 mg/dL (39-259); Microalbumin Random Urine 22 ug/dL (0-20)
[2024-02-24 09:49] LABS: Estmated Average Glucose 186; Hemoglobin A1C 8.1 % (4.0-6.0)
[2024-02-24 09:52] LABS: Microalbum Creatinine Ratio Ur 237 mg/dL (0-20)
[2024-02-24 09:55] LABS: LDL Cholesterol Direct 80 mg/dL (0-100)
== END 2024-02-24 08:43 | disposition home or self-care (01) ==
LOC: LAB 08:43
PROVIDERS: PCP Nurse Practitioner; Visit Provider Internal Medicine
DX: E11.9 Type 2 diabetes mellitus without complications (principal); E78.2 Mixed hyperlipidemia
CPT/HCPCS: 36415; 80053; 80061; 82044; 83036; 83721

== ENCOUNTER → 2024-04-10 08:17 | Outpatient (BNVA) | payer OTHER, SELFPAY | PROVIDERS: PCP Nurse Practitioner; Visit Provider Internal Medicine | DX: E11.9 Type 2 diabetes mellitus without complications (principal); E78.2 Mixed hyperlipidemia; R03.0 Elevated blood-pressure reading, without diagnosis of hypertension; Z79.84 Long term (current) use of oral hypoglycemic drugs | CPT/HCPCS: 99214 ==

== ENCOUNTER 2024-07-17 08:50 | Outpatient (CLI) | payer OTHER, SELFPAY ==
--- NOTE | 2024-07-17 | ECG_ITS ---
[facility] [address] Test Date: 2024-07-17 Pat Name: Jose R Castro Department: Room: Gender: Male Cafeteria Director: : 1980 Requested By: Vane Mendez Order Number: [id number] Josee MD: Eliazar Castellanos M.D. Interpretive Statements LEXISCAN SESTAMIBI STRESS TEST Procedure: At the baseline, the blood pressure was 111/77 mmHg with a heart rate of 88 bpm. The electrocardiogram showed normal sinus rhythm, normal axis with normal ST and T's. The Lexiscan was infused over a period of 20 seconds. A total of 0.4 mg of Lexiscan was infused. The stress phase was continued for a total of 5 minutes. Heart rate was at the end of stress phase was 98 bpm and a blood pressure of 123/84 mmHg. The EKG at the peak infusion revealed normal sinus rhythm with no significant ST-T wave changes. Sestamibi was injected 20 seconds after the Lexiscan infusion. Blood pressure at the end of recovery phase was 103/82 mmHg with a heart rate of 91 bpm. Conclusion: 1. Normal EKG response to Lexiscan infusion 2. No Lexiscan induced chest pain or cardiac arrhythmia. 3. Normal blood pressure and heart rate response. 4. Sestamibi/sestamibi perfusion scan pending; see separate report. Electronically Signed On 08-06-2024 12:56:34 CDT by Eliazar Castellanos M.D. [email or web address] [id number]
[2024-07-17 09:17] VITALS: BMI 36.5
--- NOTE | 2024-07-17 09:18 | NMCV_ITS ---
NM brandy perf SPECT r/s* [id number] Jose R Castro Age: 43 Gender: M : 1980 Exam Date: 07/17/2024 09:18 Ordering Phys: Vane Diaz Technologist: WILL Milton Exam Location: [facility] Indications: cp STRESS TEST Please see separate stress test report in [facility] for full findings IMAGE PROTOCOL Rest/Stress 1 Lexiscan Day Radiopharmaceutical Dose (mCi) Administration Site Administered by Rest: Tc-99m 10.8 IV Judit Leigh, ENVIRONMENTAL FIELD OFFICE MANAGER Sestamibi Stress:Tc-99m 32.7 IV Judit Leigh, ENVIRONMENTAL FIELD OFFICE MANAGER Sestamibi Rest: 17-Jul-2024 60 Discovery 630 Stress: 17-Jul-2024 30 Discovery 630 0.4mg Lexiscan. Images obtained in supine and prone position. SPECT RESULTS Technical Quality: Good Raw Data Analysis: Normal Image Corrections: No attenuation or motion correction applied Summed Stress Score: 0 Summed Rest Score: 0 Summed Difference Score: 0 PERFUSION FINDINGS Reduced radiotracer uptake in the inferior wall. This resolves on prone imaging. Consistent with attenuation artifact. No evidence of ischemia. FUNCTIONAL RESULTS (calculated via Gated SPECT) Stress Image LV EF (%): 73 Stress EDV (mL):96 TID: 1.09 Stress ESV (mL):26 FUNCTIONAL FINDINGS: There is normal left ventricular systolic function. IMPRESSIONS 1. Attenuation artifact seen in the inferior wall. no evidence of ischemia 2. LV systolic function is normal Eliazar Castellanos MD (Electronically Signed) Final Date: 20 July 2024 22:15 S
[2024-07-17] MEDS: regadenoson 0.4 Mg/5 ml Syringe IVP (10:33)
[2024-07-17 10:45] VITALS: BP 103/82; PULSE 91
== END 2024-07-17 08:51 | disposition home or self-care (01) ==
LOC: CDL 08:51
PROVIDERS: PCP Nurse Practitioner; Visit Provider Nurse Practitioner
DX: R07.9 Chest pain, unspecified (principal)
CPT/HCPCS: 36415; 78452; 93017; 96374; A9500; J2785